=== PATIENT | female | born 1935 | race African-American/Black ===

== ENCOUNTER 2021-12-23 17:48 | Inpatient (IN) | payer MEDICARE, MEDICAID ==
[~2021-12-23] VITALS: Ht 152.4 cm; Wt 50.6 kg
[2021-12-23] MEDS ORDERED: IPRATROPIUM BROMIDE (0.02%) 0.5MG/2.5ML NEB HHN STA (18:42)
[2021-12-23 18:59] LABS: HEMATOCRIT. 36.5 % (36.0-48.0); HEMOGLOBIN. 11.9 g/dL (12.0-16.0); MEAN CORPUSCULAR HEMOGLOBIN 36.5 pg (28.0-32.0); MEAN CORPUSCULAR VOLUME 112.1 fL (81.0-99.0); MEAN PLATELET VOLUME 9.7 fl (7.4-10.4); PLATELET 208 x1000/uL (130-400); RED BLOOD CELL COUNT 3.26 mill/uL (4.2-5.4); RED CELL DISTRIBUTION WIDTH 17.6 % (11.6-14.6)
[2021-12-23] MEDS: ALBUTEROL (0.083%) 2.5MG/3ML NEB HHN SCH ×2 (19:02→20:37)
[2021-12-23 19:10] LABS: CHLORIDE 107 mEq/L (98-107)
[2021-12-23 19:49] LABS: PLATELET ESTIMATE NORMAL
[2021-12-23] MEDS ORDERED: FUROSEMIDE 40MG/4ML VIAL IV ONE (20:00)
[2021-12-23] MEDS ORDERED: CEFTRIAXONE 1 G PREMIX 50 ML IV ONE (21:15)
[2021-12-23] MEDS ORDERED: AZITHROMYCIN 500MG/250ML 250 ML IV ONE (21:15)
[2021-12-23] MEDS ORDERED: ASPIRIN 325MG TABLET PO ONE (22:45)
[2021-12-24] VITALS (8 sets, daily range): BP systolic 96–125; BP diastolic 59–72
[2021-12-24] MEDS: DEXT 5%/0.45% NACL 1000ML 1,000 ML IV SCH (00:15)
[2021-12-24] MEDS ORDERED: CLONIDINE 0.1MG TABLET PO PRN (00:15)
[2021-12-24] MEDS ORDERED: IPRATROPIUM/ALBUTEROL 0.5-3(2.5)MG/3ML NEB NEB PRN (00:15)
[2021-12-24] MEDS ORDERED: DEXTROSE 50% WATER 50ML SYRINGE IV PRN (00:15)
[2021-12-24] MEDS ORDERED: HYDRALAZINE 20MG/ML VIAL IV PRN (00:15)
[2021-12-24] MEDS: IPRATROPIUM/ALBUTEROL 0.5-3(2.5)MG/3ML NEB HHN SCH ×4 (03:38→20:23)
[2021-12-24] MEDS: LEVOFLOXACIN 500MG PREMIX 100 ML IV SCH (03:38)
[2021-12-24] MEDS: SODIUM CHLORIDE 0.9% INJ 3ML FLUSH IVF SCH ×3 (06:11→21:47)
[2021-12-24] MEDS: BLOOD SUGAR DIAGNOSTIC STRIP TEST SCH ×4 (08:00→21:47)
[2021-12-24] MEDS: INSULIN LISPRO 100 UNITS/ML SUBCUT SCH ×4 (08:00→21:46)
[2021-12-24] MEDS: PANTOPRAZOLE SODIUM 40 MG/VIAL IV SCH (11:50)
[2021-12-24] MEDS ORDERED: FERR324T22 PO (12:40)
[2021-12-24] MEDS ORDERED: FURO-152 PO (12:40)
[2021-12-24] MEDS ORDERED: ALLO100T PO (12:40)
[2021-12-24] MEDS ORDERED: PRED10TA PO (12:40)
[2021-12-24] MEDS ORDERED: ATEN-42 PO (12:40)
[2021-12-24] MEDS ORDERED: WARF2.5T83 PO (12:40)
[2021-12-24] MEDS ORDERED: PRIM250T7 PO (12:40)
[2021-12-24] MEDS ORDERED: NITR1OIN TD (12:40)
[2021-12-24] MEDS ORDERED: SITA100T11 PO (12:40)
[2021-12-24] MEDS: ACETAMINOPHEN 650MG/20.3ML UDC PO PRN (15:14)
[2021-12-24] MEDS: PRIMIDONE 250 MG TABLET PO SCH (21:46)
[2021-12-25] VITALS (12 sets, daily range): BP systolic 103–130; BP diastolic 56–89
[2021-12-25] MEDS ORDERED: LACTULOSE 20G/30ML UDC PO PRN (00:30)
[2021-12-25] MEDS ORDERED: METHOTREXATE SODIUM 2 . 5MG TABLET PO SCH (00:30)
[2021-12-25] MEDS: IPRATROPIUM/ALBUTEROL 0.5-3(2.5)MG/3ML NEB HHN SCH ×3 (00:51→21:56)
[2021-12-25] MEDS: LEVOFLOXACIN 500MG PREMIX 100 ML IV SCH (02:43)
[2021-12-25] MEDS: DEXT 5%/0.45% NACL 1000ML 1,000 ML IV SCH ×2 (02:44→16:16)
[2021-12-25] MEDS: SODIUM CHLORIDE 0.9% INJ 3ML FLUSH IVF SCH ×3 (05:35→22:31)
[2021-12-25] MEDS: OXYBUTYNIN CHLORIDE 5MG TABLET PO SCH ×3 (05:35→22:31)
[2021-12-25 06:41] LABS: INR 2.9; PROTHROMBIN TIME 28.9 sec (9.6-11.0)
[2021-12-25 06:50] LABS: T4 FREE 1.38 ng/dL (0.76-1.46)
[2021-12-25] MEDS: ACETAMINOPHEN 650MG/20.3ML UDC PO PRN ×2 (07:17→13:17)
[2021-12-25] MEDS: IBUPROFEN 600MG TABLET PO PRN ×2 (07:57→20:27)
[2021-12-25] MEDS: BLOOD SUGAR DIAGNOSTIC STRIP TEST SCH ×4 (08:08→20:28)
[2021-12-25] MEDS: PANTOPRAZOLE SODIUM 40 MG/VIAL IV SCH (08:45)
[2021-12-25] MEDS: FERROUS SULFATE 325MG TABLET PO SCH (08:46)
[2021-12-25] MEDS: ATENOLOL 25MG TABLET PO SCH ×2 (08:47→16:15)
[2021-12-25] MEDS: ALLOPURINOL 100 MG TABLET PO SCH (08:47)
[2021-12-25] MEDS: FOLIC ACID 1MG TABLET PO SCH (08:47)
[2021-12-25] MEDS: INSULIN LISPRO 100 UNITS/ML SUBCUT SCH ×4 (08:49→20:28)
[2021-12-25] MEDS: PRIMIDONE 250 MG TABLET PO SCH ×3 (09:00→20:26)
[2021-12-25] MEDS ORDERED: PREDNISONE 10MG TABLET PO SCH (09:00)
[2021-12-25] MEDS: VENLAFAXINE HCL 50MG TABLET PO SCH (09:49)
[2021-12-25] MEDS: PIOGLITAZONE 15MG TABLET PO SCH (09:50)
[2021-12-25] MEDS: WARFARIN SODIUM 5MG TABLET PO SCH (17:48)
[2021-12-25] MEDS ORDERED: HYDROCODONE/ACETAMINOPHEN 5/325MG TABLET PO PRN (21:30)
[2021-12-25] MEDS: TRAMADOL 50MG TABLET PO PRN (23:12)
[2021-12-26] VITALS (12 sets, daily range): BP systolic 103–122; BP diastolic 41–72
[2021-12-26] MEDS: SILDENAFIL CITRATE 20MG TABLET PO SCH ×4 (00:11→22:17)
[2021-12-26] MEDS: IPRATROPIUM/ALBUTEROL 0.5-3(2.5)MG/3ML NEB HHN SCH ×4 (01:03→20:43)
[2021-12-26] MEDS: LEVOFLOXACIN 500MG PREMIX 100 ML IV SCH (01:27)
[2021-12-26] MEDS: SODIUM CHLORIDE 0.9% INJ 3ML FLUSH IVF SCH ×3 (05:18→21:58)
[2021-12-26] MEDS: OXYBUTYNIN CHLORIDE 5MG TABLET PO SCH ×3 (05:18→21:58)
[2021-12-26] MEDS: TRAMADOL 50MG TABLET PO PRN ×3 (05:20→07:33)
[2021-12-26 06:55] LABS: BASOPHILS % 0.3 % (0.0-2.0); EOSINOPHILS % 0.4 % (0.0-5.0); HEMATOCRIT. 32.9 % (36.0-48.0); LYMPHOCYTES % 7.1 % (20.0-50.0); MEAN CORPUSCULAR HEMOGLOBIN 37.3 pg (28.0-32.0); MEAN CORPUSCULAR VOLUME 111.7 fL (81.0-99.0); MEAN PLATELET VOLUME 9.7 fl (7.4-10.4); MONOCYTES % 10.9 % (2.0-8.0); NEUTROPHILS % 81.3 % (40.0-76.0); PLATELET 175 x1000/uL (130-400); RED BLOOD CELL COUNT 2.95 mill/uL (4.2-5.4); RED CELL DISTRIBUTION WIDTH 17.1 % (11.6-14.6)
[2021-12-26 07:08] LABS: INR 2.3; PROTHROMBIN TIME 23.6 sec (9.6-11.0)
[2021-12-26 07:27] LABS: FOLIC ACID (FOLATE) SERUM >20 ng/mL ng/mL (>5.38)
[2021-12-26] MEDS: BLOOD SUGAR DIAGNOSTIC STRIP TEST SCH ×4 (07:30→21:58)
[2021-12-26 07:38] LABS: VITAMIN B12 SERUM 1546 pg/mL (211-911)
[2021-12-26] MEDS: INSULIN LISPRO 100 UNITS/ML SUBCUT SCH ×4 (08:00→21:00)
[2021-12-26] MEDS: PANTOPRAZOLE SODIUM 40 MG/VIAL IV SCH (09:24)
[2021-12-26] MEDS: VENLAFAXINE HCL 50MG TABLET PO SCH (09:24)
[2021-12-26] MEDS: ATENOLOL 25MG TABLET PO SCH ×2 (09:25→17:47)
[2021-12-26] MEDS: ALLOPURINOL 100 MG TABLET PO SCH (09:25)
[2021-12-26] MEDS: PREDNISONE 10MG TABLET PO SCH (09:26)
[2021-12-26] MEDS: FOLIC ACID 1MG TABLET PO SCH (09:26)
[2021-12-26] MEDS: FERROUS SULFATE 325MG TABLET PO SCH (09:26)
[2021-12-26] MEDS: PIOGLITAZONE 15MG TABLET PO SCH (09:27)
[2021-12-26] MEDS: PRIMIDONE 250 MG TABLET PO SCH ×2 (11:17→21:57)
[2021-12-26] MEDS ORDERED: NALOXONE HCL 0.4MG/ML VIAL IV PRN (12:45)
[2021-12-26] MEDS: WARFARIN SODIUM 5MG TABLET PO SCH (18:30)
[2021-12-27] VITALS (13 sets, daily range): BP systolic 90–110; BP diastolic 48–93
[2021-12-27] MEDS: IPRATROPIUM/ALBUTEROL 0.5-3(2.5)MG/3ML NEB HHN SCH ×4 (00:36→20:50)
[2021-12-27] MEDS: LEVOFLOXACIN 500MG PREMIX 100 ML IV SCH (02:56)
[2021-12-27] MEDS: OXYBUTYNIN CHLORIDE 5MG TABLET PO SCH ×3 (05:20→21:38)
[2021-12-27] MEDS: SODIUM CHLORIDE 0.9% INJ 3ML FLUSH IVF SCH ×3 (05:21→21:36)
[2021-12-27] MEDS: SILDENAFIL CITRATE 20MG TABLET PO SCH ×3 (05:35→22:57)
[2021-12-27] MEDS: BLOOD SUGAR DIAGNOSTIC STRIP TEST SCH ×4 (07:30→21:00)
[2021-12-27] MEDS: INSULIN LISPRO 100 UNITS/ML SUBCUT SCH ×4 (08:00→21:38)
[2021-12-27] MEDS: ATENOLOL 25MG TABLET PO SCH (09:00)
[2021-12-27] MEDS: FOLIC ACID 1MG TABLET PO SCH (11:11)
[2021-12-27] MEDS: PANTOPRAZOLE SODIUM 40 MG/VIAL IV SCH (11:11)
[2021-12-27] MEDS: ALLOPURINOL 100 MG TABLET PO SCH (11:12)
[2021-12-27] MEDS: PIOGLITAZONE 15MG TABLET PO SCH (11:12)
[2021-12-27] MEDS: PREDNISONE 10MG TABLET PO SCH (11:12)
[2021-12-27] MEDS: FERROUS SULFATE 325MG TABLET PO SCH (11:13)
[2021-12-27] MEDS: PRIMIDONE 250 MG TABLET PO SCH ×2 (11:15→21:36)
[2021-12-27 15:29] LABS: INR 3.3; PROTHROMBIN TIME 32.5 sec (9.6-11.0)
[2021-12-27] MEDS ORDERED: DIGOXIN 125MCG TABLET PO SCH (18:00)
[2021-12-27] MEDS ORDERED: WARFARIN SODIUM 2.5MG TABLET PO SCH (20:00)
[2021-12-27] MEDS ORDERED: BUDESONIDE 0.5MG/2ML NEB ONE (20:25)
[2021-12-28] VITALS: BP 115/87
[2021-12-28] MEDS: IPRATROPIUM/ALBUTEROL 0.5-3(2.5)MG/3ML NEB HHN SCH (00:39)
[2021-12-28 02:00] VITALS: BP 104/57
[2021-12-28] MEDS: LEVOFLOXACIN 500MG PREMIX 100 ML IV SCH (02:30)
[2021-12-28 04:00] VITALS: BP 101/67
[2021-12-28] MEDS: SILDENAFIL CITRATE 20MG TABLET PO SCH (05:47)
[2021-12-28] MEDS: OXYBUTYNIN CHLORIDE 5MG TABLET PO SCH (05:47)
[2021-12-28 06:00] VITALS: BP 111/59
[2021-12-28 06:27] LABS: INR 3.2; PROTHROMBIN TIME 30.9 sec (9.6-11.0)
[2021-12-28 07:08] LABS: ANTI-CENTROMERE B ANTIBODIES < 0.2 AI (0.0-0.9); ANTI-JO 1 ABS <0.2 AI (0.0-0.9)
[2021-12-28 07:23] VITALS: BP 103/93
[2021-12-28] MEDS ORDERED: ATENOLOL 25MG TABLET PO SCH (09:00)
[2021-12-28] MEDS ORDERED: PREDNISONE 10MG TABLET PO SCH (09:00)
[2021-12-28 09:10] LABS: ALDOLASE 12.9 U/L (3.3-10.3)
[2021-12-28 19:06] LABS: ANTI-CARDIOLIPIN AB IGG < 9 GPL U/mL (0-14); ANTI-CARDIOLIPIN AB IGM < 9 MPL U/mL (0-12)
[2021-12-29] MEDS ORDERED: METHOTREXATE SODIUM 2 . 5MG TABLET PO SCH ×3 (09:00→21:00)
== END 2021-12-28 06:50 | disposition home health service (06) | DRG 193 ==
LOC: ER 17:48 → MICUSO 22:39 → 5EST 12-24 10:30
PROVIDERS: ADMIT Internal Medicine; ATTEND Internal Medicine
PROC: 5A09357 Assistance with Respiratory Ventilation, Less than 24 Consecutive Hours, Continuous Positive Airway Pressure (ICD-10-PCS; principal; 2021-12-23)
DX: J18.9 Pneumonia, unspecified organism (principal); J96.01 Acute respiratory failure with hypoxia; M33.20 Polymyositis, organ involvement unspecified; D68.61 Antiphospholipid syndrome; E44.1 Mild protein-calorie malnutrition; I50.42 Chronic combined systolic (congestive) and diastolic (congestive) heart failure; R65.10 Systemic inflammatory response syndrome (SIRS) of non-infectious origin without acute organ dysfunction; K59.00 Constipation, unspecified; D53.9 Nutritional anemia, unspecified; E11.9 Type 2 diabetes mellitus without complications; E78.5 Hyperlipidemia, unspecified; F32.A Depression, unspecified; I11.0 Hypertensive heart disease with heart failure; M06.9 Rheumatoid arthritis, unspecified; M31.6 Other giant cell arteritis; M51.36 Other intervertebral disc degeneration, lumbar region; M85.80 Other specified disorders of bone density and structure, unspecified site; N20.0 Calculus of kidney; Z66 Do not resuscitate; I35.0 Nonrheumatic aortic (valve) stenosis; I27.20 Pulmonary hypertension, unspecified; Z20.822 Contact with and (suspected) exposure to COVID-19; R74.01 Elevation of levels of liver transaminase levels; D75.89 Other specified diseases of blood and blood-forming organs; I27.21 Secondary pulmonary arterial hypertension; Z82.49 Family history of ischemic heart disease and other diseases of the circulatory system; Z82.5 Family history of asthma and other chronic lower respiratory diseases; Z83.3 Family history of diabetes mellitus; Z86.711 Personal history of pulmonary embolism; Z86.718 Personal history of other venous thrombosis and embolism; Z87.891 Personal history of nicotine dependence; Z90.711 Acquired absence of uterus with remaining cervical stump; Z93.1 Gastrostomy status; Z95.828 Presence of other vascular implants and grafts; Z79.899 Other long term (current) drug therapy; Z68.21 Body mass index [BMI] 21.0-21.9, adult; Z79.01 Long term (current) use of anticoagulants
CPT/HCPCS: 36415; 71045; 71260; 73718; 80053; 82085; 82550; 82607; 82746; 82962; 83036; 83605; 83880; 84439; 84484; 85025; 85651; 86147; 86235; 87426; 93005; 93306; 94640; 94660; 97162; 99291; C9113; J0456; J0696; J1815; J1940; J1956; J7512; J7626

== ENCOUNTER 2022-01-09 11:13 | Inpatient (IN) | payer MEDICARE, MEDICAID ==
[~2022-01-09] VITALS: Ht 152.4 cm; Wt 52.6 kg
[~2022-01-09 11:13] MED LIST: ALLO100T PO; ATEN-42 PO; FERR324T22 PO; FURO-152 PO; NITR1OIN TD; PRED10TA PO; PRIM250T7 PO; SITA100T11 PO; WARF2.5T83 PO
[2022-01-09 12:54] LABS: HEMATOCRIT. 32.9 % (36.0-48.0); HEMOGLOBIN. 10.9 g/dL (12.0-16.0); MEAN CORPUSCULAR HEMOGLOBIN 37.4 pg (28.0-32.0); MEAN CORPUSCULAR VOLUME 113.3 fL (81.0-99.0); MEAN PLATELET VOLUME 9.5 fl (7.4-10.4); PLATELET 234 x1000/uL (130-400); RED CELL DISTRIBUTION WIDTH 18.7 % (11.6-14.6)
[2022-01-09 13:02] LABS: CHLORIDE 108 mEq/L (98-107)
[2022-01-09 13:05] LABS: INR 2.2; PROTHROMBIN TIME 22.6 sec (9.6-11.0)
[2022-01-09 13:13] LABS: NUCLEATED RED BLOOD CELLS 1 /100 WBC
[2022-01-09 13:15] LABS: PLATELET ESTIMATE NORMAL
[2022-01-09 16:24] LABS: CLARITY URINE CLEAR (CLEAR); COLOR URINE YELLOW (YELLOW); KETONES URINE TRACE (NEGATIVE); LEUKOCYTE ESTERASE URINE 2+ (NEGATIVE); NITRITE URINE NEGATIVE (NEGATIVE); OCCULT BLOOD URINE TRACE (NEGATIVE); PH URINE 6.5 (4.5-8.0); PROTEIN URINE 1+ (NEGATIVE); SPECIFIC GRAVITY URINE 1.018 (1.005-1.030)
[2022-01-09] MEDS ORDERED: MAGNESIUM HYDROXIDE 400MG/5ML 30ML UDC PO PRN (18:15)
[2022-01-09] MEDS ORDERED: ZOLPIDEM TARTRATE 5MG TABLET PO PRN (18:15)
[2022-01-09] MEDS ORDERED: GUAIFENESIN 200MG/10ML SUGAR FREE UDC PO PRN (18:15)
[2022-01-09] MEDS ORDERED: WARFARIN SODIUM 2.5MG TABLET PO ONE (18:15)
[2022-01-09] MEDS ORDERED: DIPHENHYDRAMINE 50MG/ML VIAL IV PRN (18:15)
[2022-01-09] MEDS ORDERED: ACETAMINOPHEN 325MG TABLET PO PRN (18:15)
[2022-01-09] MEDS ORDERED: ONDANSETRON HCL 4MG/2ML INJ IV PRN (18:15)
[2022-01-09] MEDS ORDERED: HYDROCODONE/APAP 7.5/325MG 1 TAB TABLET PO PRN (18:15)
[2022-01-09] MEDS ORDERED: DEXTROSE 50% WATER 50ML SYRINGE IV PRN (18:15)
[2022-01-09] MEDS ORDERED: CLONIDINE 0.1MG TABLET PO PRN (18:15)
[2022-01-09 18:39] VITALS: BP 152/86
[2022-01-09] MEDS ORDERED: CYANOCOBALAMIN 1000MCG/ML VIAL IM NR (18:45)
[2022-01-09 19:30] VITALS: BP 138/92
[2022-01-09 20:00] VITALS: BP 138/92
[2022-01-09] MEDS: INSULIN LISPRO 100 UNITS/ML SUBCUT SCH (21:00)
[2022-01-09] MEDS: BLOOD SUGAR DIAGNOSTIC STRIP TEST SCH (21:32)
[2022-01-09] MEDS: PRIMIDONE 250 MG TABLET PO SCH (21:36)
[2022-01-09] MEDS: SODIUM CHLORIDE 0.9% INJ 3ML FLUSH IVF SCH (21:36)
[2022-01-10] VITALS: BP 153/58
[2022-01-10] MEDS: ACETAMINOPHEN 325MG TABLET PO PRN (00:15)
[2022-01-10] MEDS ORDERED: P20 PO (03:50)
[2022-01-10 04:00] VITALS: BP 143/67
[2022-01-10] MEDS: SODIUM CHLORIDE 0.9% INJ 3ML FLUSH IVF SCH ×3 (05:20→21:17)
[2022-01-10] MEDS: BLOOD SUGAR DIAGNOSTIC STRIP TEST SCH ×4 (06:52→21:13)
[2022-01-10] MEDS: INSULIN LISPRO 100 UNITS/ML SUBCUT SCH ×4 (06:52→21:17)
[2022-01-10 07:46] LABS: INR 2.2; PROTHROMBIN TIME 21.8 sec (9.6-11.0)
[2022-01-10 08:00] VITALS: BP 128/53
[2022-01-10] MEDS: ALLOPURINOL 100 MG TABLET PO SCH (08:55)
[2022-01-10] MEDS: ATENOLOL 25MG TABLET PO SCH (08:55)
[2022-01-10] MEDS: FOLIC ACID 1MG TABLET PO SCH (08:55)
[2022-01-10] MEDS: LINAGLIPTIN 5MG TABLET PO SCH (08:56)
[2022-01-10] MEDS ORDERED: PREDNISONE 10MG TABLET PO SCH (09:00)
[2022-01-10 12:00] VITALS: BP 135/61
[2022-01-10] MEDS ORDERED: PREDNISONE 20MG TABLET PO ONE ×2 (13:00→13:45)
[2022-01-10 13:20] LABS: FERRITIN 287 ng/mL (10-291)
[2022-01-10] MEDS ORDERED: PREDNISONE 20MG TABLET PO NR (13:45)
[2022-01-10 16:00] VITALS: BP 122/2
[2022-01-10 16:43] LABS: FOLIC ACID (FOLATE) SERUM > 20.00 ng/mL (>5.38); VITAMIN B12 SERUM > 2000.0 pg/mL (211-911)
[2022-01-10] MEDS ORDERED: DIGOXIN 250MCG TABLET PO SCH (18:00)
[2022-01-10] MEDS ORDERED: WARFARIN SODIUM 2.5MG TABLET PO NR (18:00)
[2022-01-10 20:00] VITALS: BP 133/68
[2022-01-10] MEDS: FAMOTIDINE 20MG TABLET PO SCH (21:16)
[2022-01-10] MEDS: PRIMIDONE 250 MG TABLET PO SCH (21:16)
[2022-01-11] VITALS: BP 139/85
[2022-01-11 04:00] VITALS: BP 142/85
[2022-01-11] MEDS: SODIUM CHLORIDE 0.9% INJ 3ML FLUSH IVF SCH ×3 (06:00→21:36)
[2022-01-11] MEDS: BLOOD SUGAR DIAGNOSTIC STRIP TEST SCH ×4 (07:06→21:21)
[2022-01-11] MEDS: INSULIN LISPRO 100 UNITS/ML SUBCUT SCH ×4 (07:39→21:00)
[2022-01-11 08:00] VITALS: BP 138/71
[2022-01-11 08:56] LABS: BASOPHILS % 0.5 % (0.0-2.0); EOSINOPHILS % 0.2 % (0.0-5.0); HEMATOCRIT. 35.1 % (36.0-48.0); HEMOGLOBIN. 11.2 g/dL (12.0-16.0); LYMPHOCYTES % 19.1 % (20.0-50.0); MEAN CORPUSCULAR HEMOGLOBIN 37.8 pg (28.0-32.0); MEAN CORPUSCULAR VOLUME 118.6 fL (81.0-99.0); MEAN PLATELET VOLUME 9.8 fl (7.4-10.4); MONOCYTES % 11.3 % (2.0-8.0); NEUTROPHILS % 68.9 % (40.0-76.0); PLATELET 210 x1000/uL (130-400); RED BLOOD CELL COUNT 2.96 mill/uL (4.2-5.4); RED CELL DISTRIBUTION WIDTH 18.9 % (11.6-14.6)
[2022-01-11 09:05] LABS: INR 2.3; PROTHROMBIN TIME 23.4 sec (9.6-11.0)
[2022-01-11 09:09] LABS: CHLORIDE 111 mEq/L (98-107)
[2022-01-11] MEDS: FUROSEMIDE 20MG/2ML VIAL IVP SCH (09:09)
[2022-01-11] MEDS: ATENOLOL 25MG TABLET PO SCH (09:10)
[2022-01-11] MEDS: LINAGLIPTIN 5MG TABLET PO SCH (09:10)
[2022-01-11] MEDS: ALLOPURINOL 100 MG TABLET PO SCH (09:10)
[2022-01-11] MEDS: PREDNISONE 20MG TABLET PO SCH (09:10)
[2022-01-11] MEDS: FOLIC ACID 1MG TABLET PO SCH (09:10)
[2022-01-11 12:00] VITALS: BP 126/73
[2022-01-11 15:44] VITALS: BP 133/76
[2022-01-11] MEDS ORDERED: POLYETHYLENE GLYCOL 3350 (17GM) 1 DOSE PACK PO NR (17:30)
[2022-01-11] MEDS: DOCUSATE SODIUM 100MG CAPSULE PO SCH (17:45)
[2022-01-11] MEDS ORDERED: WARFARIN SODIUM 2.5MG TABLET PO NR (18:00)
[2022-01-11 20:00] VITALS: BP 147/61
[2022-01-11] MEDS: FAMOTIDINE 20MG TABLET PO SCH (21:35)
[2022-01-11] MEDS: PRIMIDONE 250 MG TABLET PO SCH (21:35)
[2022-01-12] VITALS: BP 158/66
[2022-01-12 04:00] VITALS: BP 145/62
[2022-01-12] MEDS: SODIUM CHLORIDE 0.9% INJ 3ML FLUSH IVF SCH ×3 (06:00→21:10)
[2022-01-12] MEDS: BLOOD SUGAR DIAGNOSTIC STRIP TEST SCH ×4 (06:40→21:10)
[2022-01-12] MEDS: INSULIN LISPRO 100 UNITS/ML SUBCUT SCH ×4 (07:31→21:00)
[2022-01-12 08:00] VITALS: BP 139/61
[2022-01-12] MEDS: LINAGLIPTIN 5MG TABLET PO SCH (09:41)
[2022-01-12] MEDS: DOCUSATE SODIUM 100MG CAPSULE PO SCH ×2 (09:41→18:01)
[2022-01-12] MEDS: PREDNISONE 20MG TABLET PO SCH (09:41)
[2022-01-12] MEDS: ATENOLOL 50 MG TABLET PO SCH (09:42)
[2022-01-12] MEDS: FOLIC ACID 1MG TABLET PO SCH (09:42)
[2022-01-12] MEDS: ALLOPURINOL 100 MG TABLET PO SCH (09:42)
[2022-01-12 11:34] LABS: BASOPHILS % 0.5 % (0.0-2.0); EOSINOPHILS % 0.8 % (0.0-5.0); HEMATOCRIT. 35.3 % (36.0-48.0); HEMOGLOBIN. 11.3 g/dL (12.0-16.0); LYMPHOCYTES % 25.9 % (20.0-50.0); MEAN CORPUSCULAR VOLUME 118.7 fL (81.0-99.0); MEAN PLATELET VOLUME 10.1 fl (7.4-10.4); MONOCYTES % 10.6 % (2.0-8.0); NEUTROPHILS % 62.2 % (40.0-76.0); PLATELET 188 x1000/uL (130-400); RED BLOOD CELL COUNT 2.97 mill/uL (4.2-5.4); RED CELL DISTRIBUTION WIDTH 19.8 % (11.6-14.6)
[2022-01-12 11:43] LABS: PROTHROMBIN TIME 20.5 sec (9.6-11.0)
[2022-01-12 12:00] VITALS: BP 131/71
[2022-01-12 12:01] LABS: CHLORIDE 109 mEq/L (98-107)
[2022-01-12 16:00] VITALS: BP 126/73
[2022-01-12] MEDS ORDERED: WARFARIN SODIUM 2.5MG TABLET PO NR (18:00)
[2022-01-12 20:00] VITALS: BP 124/59
[2022-01-12] MEDS: PRIMIDONE 250 MG TABLET PO SCH (21:10)
[2022-01-12] MEDS: FAMOTIDINE 20MG TABLET PO SCH (21:10)
[2022-01-13] VITALS: BP 125/67
[2022-01-13 03:46] VITALS: BP 140/63
[2022-01-13] MEDS: SODIUM CHLORIDE 0.9% INJ 3ML FLUSH IVF SCH ×3 (05:01→21:32)
[2022-01-13] MEDS: BLOOD SUGAR DIAGNOSTIC STRIP TEST SCH ×4 (07:04→21:13)
[2022-01-13 07:11] LABS: BASOPHILS % 0.5 % (0.0-2.0); EOSINOPHILS % 0.5 % (0.0-5.0); HEMATOCRIT. 35.7 % (36.0-48.0); HEMOGLOBIN. 10.9 g/dL (12.0-16.0); LYMPHOCYTES % 22.6 % (20.0-50.0); MEAN CORPUSCULAR HEMOGLOBIN 37.3 pg (28.0-32.0); MEAN CORPUSCULAR VOLUME 122.6 fL (81.0-99.0); MEAN PLATELET VOLUME 9.2 fl (7.4-10.4); MONOCYTES % 12.3 % (2.0-8.0); NEUTROPHILS % 64.1 % (40.0-76.0); PLATELET 166 x1000/uL (130-400); RED BLOOD CELL COUNT 2.91 mill/uL (4.2-5.4); RED CELL DISTRIBUTION WIDTH 19.5 % (11.6-14.6)
[2022-01-13 07:16] LABS: CHLORIDE 110 mEq/L (98-107)
[2022-01-13 07:21] LABS: INR 1.8; PROTHROMBIN TIME 18.2 sec (9.6-11.0)
[2022-01-13] MEDS: INSULIN LISPRO 100 UNITS/ML SUBCUT SCH ×4 (07:50→21:00)
[2022-01-13 08:08] VITALS: BP 160/78
[2022-01-13] MEDS: ATENOLOL 50 MG TABLET PO SCH (09:01)
[2022-01-13] MEDS: ALLOPURINOL 100 MG TABLET PO SCH (09:01)
[2022-01-13] MEDS: FOLIC ACID 1MG TABLET PO SCH (09:01)
[2022-01-13] MEDS: LINAGLIPTIN 5MG TABLET PO SCH (09:01)
[2022-01-13] MEDS: DOCUSATE SODIUM 100MG CAPSULE PO SCH ×2 (09:01→17:53)
[2022-01-13] MEDS: PREDNISONE 20MG TABLET PO SCH (09:01)
[2022-01-13] MEDS: FUROSEMIDE 20MG/2ML VIAL IVP SCH (09:02)
[2022-01-13] MEDS ORDERED: LACTULOSE 20G/30ML UDC PO NR (10:15)
[2022-01-13] MEDS ORDERED: SODIUM POLYSTYRENE SULFONATE 15 G/60 ML BOT PO NR (10:15)
[2022-01-13 12:30] VITALS: BP 154/78
[2022-01-13 16:30] VITALS: BP 144/72
[2022-01-13] MEDS ORDERED: WARFARIN SODIUM 3MG TABLET PO NR (18:00)
[2022-01-13] MEDS ORDERED: NALOXONE HCL 0.4MG/ML VIAL IV PRN (19:00)
[2022-01-13] MEDS: FAMOTIDINE 20MG TABLET PO SCH (21:00)
[2022-01-13] MEDS: PRIMIDONE 250 MG TABLET PO SCH (21:00)
[2022-01-14] VITALS (10 sets, daily range): BP systolic 108–203; BP diastolic 61–89
[2022-01-14] MEDS: SODIUM CHLORIDE 0.9% INJ 3ML FLUSH IVF SCH (06:16)
[2022-01-14 06:26] LABS: BASOPHILS % 0.4 % (0.0-2.0); EOSINOPHILS % 0.4 % (0.0-5.0); HEMATOCRIT. 36.4 % (36.0-48.0); HEMOGLOBIN. 11.4 g/dL (12.0-16.0); LYMPHOCYTES % 21.6 % (20.0-50.0); MEAN CORPUSCULAR HEMOGLOBIN 37.3 pg (28.0-32.0); MEAN CORPUSCULAR VOLUME 118.6 fL (81.0-99.0); MEAN PLATELET VOLUME 10.9 fl (7.4-10.4); MONOCYTES % 10.4 % (2.0-8.0); NEUTROPHILS % 67.2 % (40.0-76.0); PLATELET 171 x1000/uL (130-400); RED BLOOD CELL COUNT 3.07 mill/uL (4.2-5.4); RED CELL DISTRIBUTION WIDTH 19.8 % (11.6-14.6)
[2022-01-14] MEDS: BLOOD SUGAR DIAGNOSTIC STRIP TEST SCH ×4 (06:26→21:00)
[2022-01-14 06:39] LABS: INR 1.7; PROTHROMBIN TIME 17.6 sec (9.6-11.0)
[2022-01-14 06:46] LABS: CHLORIDE 112 mEq/L (98-107)
[2022-01-14] MEDS: INSULIN LISPRO 100 UNITS/ML SUBCUT SCH ×4 (07:50→21:46)
[2022-01-14] MEDS ORDERED: ALLO100T PO (09:31)
[2022-01-14] MEDS ORDERED: FAMO20TA8 PO (09:31)
[2022-01-14] MEDS ORDERED: ATEN50TA PO (09:31)
[2022-01-14] MEDS ORDERED: P20 PO ×2 (09:31)
[2022-01-14] MEDS ORDERED: LINA5TAB PO (09:31)
[2022-01-14] MEDS ORDERED: PRIM250T7 PO (09:31)
[2022-01-14] MEDS ORDERED: WARF2.5T83 PO (09:31)
[2022-01-14] MEDS ORDERED: FURO-152 MT (09:36)
[2022-01-14] MEDS: PREDNISONE 20MG TABLET PO SCH (11:03)
[2022-01-14] MEDS: ATENOLOL 50 MG TABLET PO SCH (11:03)
[2022-01-14] MEDS: FUROSEMIDE 40MG/4ML VIAL IVP NR ×2 (11:06→11:39)
[2022-01-14] MEDS: DOCUSATE SODIUM 100MG CAPSULE PO SCH ×2 (11:10→17:55)
[2022-01-14] MEDS: LINAGLIPTIN 5MG TABLET PO SCH (11:11)
[2022-01-14] MEDS: FOLIC ACID 1MG TABLET PO SCH (11:11)
[2022-01-14] MEDS: ALLOPURINOL 100 MG TABLET PO SCH (11:11)
[2022-01-14 11:21] LABS: BG BASE EXCESS 3.8 mmol/L (-2.0-2.0); BG CARBOXYHEMOGLOBIN 0.5 % (0.5-1.5); BG DEOXYHEMOGLOBIN 2.2 % (0.0-5.0); BG FRACTION INSPIRED OXYGEN 44; BG HCO3 ACT 27.9 mmol/L (22.0-26.0); BG METHEMOGLOBIN 0.4 % (0.0-1.5); BG OXYGEN SATURATION 97.8 % (92.0-98.5); BG OXYHEMOGLOBIN 96.9 % (94.0-97.0); BG PCO2 39.9 mmHg (35.0-45.0); BG PH 7.462 (7.350-7.450); BG PO2 106.1 mmHg (75.0-100.0); BG SAMPLE SITE RIGHT RADIAL; BG TOTAL HEMOGLOBIN 11.1 g/dL (12.0-18.0); BG VENT MODE NASAL CANNULA
[2022-01-14] MEDS: IPRATROPIUM/ALBUTEROL 0.5-3(2.5)MG/3ML NEB HHN SCH ×3 (11:35→20:26)
[2022-01-14] MEDS: MAGNESIUM/ALUMINUM HYDROXIDE/SIMETHICONE 30ML UDC PO PRN ×2 (12:01→22:36)
[2022-01-14] MEDS ORDERED: CEFTRIAXONE 1 G PREMIX 50 ML IV SCH (12:30)
[2022-01-14] MEDS: METHYLPREDNISOLONE SOD SUCC 40 MG/ML VIAL IV SCH (13:36)
[2022-01-14] MEDS: DEXTROSE 5% WATER 1,000 ML IV SCH (13:37)
[2022-01-14] MEDS: CEFTRIAXONE 1,000 MG in DEXTROSE 5% WATER 50 ML IV SCH (15:16)
[2022-01-14 17:08] LABS: CHLORIDE 109 mEq/L (98-107)
[2022-01-14] MEDS ORDERED: WARFARIN SODIUM 3MG TABLET PO NR (18:00)
[2022-01-14] MEDS ORDERED: POTASSIUM CHLORIDE INJ 40 MEQ in DEXT 5% WATER 250 ML IV ONE (18:15)
[2022-01-14] MEDS: KCL 20MEQ/100ML X 2 FOR TOTAL KCL 40MEQ/200ML IV SCH ×2 (20:44→23:10)
[2022-01-14] MEDS: PRIMIDONE 250 MG TABLET PO SCH (21:39)
[2022-01-14] MEDS: FAMOTIDINE 20MG TABLET PO SCH (21:39)
[2022-01-14] MEDS: SILDENAFIL CITRATE 20MG TABLET PO SCH (21:40)
[2022-01-14] MEDS: ACETAMINOPHEN 325MG TABLET PO PRN (21:42)
[2022-01-14] MEDS: LIDOCAINE 5% PATCH TOP SCH (23:36)
[2022-01-15] VITALS (9 sets, daily range): BP systolic 120–156; BP diastolic 29–106
[2022-01-15] MEDS: IPRATROPIUM/ALBUTEROL 0.5-3(2.5)MG/3ML NEB HHN SCH ×6 (00:16→20:24)
[2022-01-15] MEDS: METHYLPREDNISOLONE SOD SUCC 40 MG/ML VIAL IV SCH ×2 (00:35→12:39)
[2022-01-15] MEDS: SILDENAFIL CITRATE 20MG TABLET PO SCH ×3 (05:30→21:15)
[2022-01-15] MEDS: DEXTROSE 5% WATER 1,000 ML IV SCH (05:30)
[2022-01-15 06:12] LABS: HEMATOCRIT. 32.3 % (36.0-48.0); HEMOGLOBIN. 10.4 g/dL (12.0-16.0); MEAN CORPUSCULAR HEMOGLOBIN 37.5 pg (28.0-32.0); MEAN CORPUSCULAR VOLUME 116.1 fL (81.0-99.0); MEAN PLATELET VOLUME 10.5 fl (7.4-10.4); PLATELET 168 x1000/uL (130-400); RED BLOOD CELL COUNT 2.79 mill/uL (4.2-5.4); RED CELL DISTRIBUTION WIDTH 19.4 % (11.6-14.6)
[2022-01-15 06:17] LABS: INR 1.7; PROTHROMBIN TIME 17.1 sec (9.6-11.0)
[2022-01-15 06:18] LABS: CHLORIDE 107 mEq/L (98-107)
[2022-01-15 08:22] LABS: PLATELET ESTIMATE NORMAL
[2022-01-15] MEDS: LINAGLIPTIN 5MG TABLET PO SCH (08:48)
[2022-01-15] MEDS: ALLOPURINOL 100 MG TABLET PO SCH (08:48)
[2022-01-15] MEDS: FOLIC ACID 1MG TABLET PO SCH (08:48)
[2022-01-15] MEDS: ATENOLOL 50 MG TABLET PO SCH (08:49)
[2022-01-15] MEDS: DOCUSATE SODIUM 100MG CAPSULE PO SCH ×2 (08:49→17:09)
[2022-01-15] MEDS: LIDOCAINE 5% PATCH TOP SCH (09:00)
[2022-01-15] MEDS: BLOOD SUGAR DIAGNOSTIC STRIP TEST SCH ×4 (09:04→21:16)
[2022-01-15] MEDS: INSULIN LISPRO 100 UNITS/ML SUBCUT SCH ×4 (09:21→21:00)
[2022-01-15] MEDS: GABAPENTIN 100MG CAPSULE PO SCH ×2 (12:40→21:16)
[2022-01-15] MEDS: CEFTRIAXONE 1,000 MG in DEXTROSE 5% WATER 50 ML IV SCH (14:59)
[2022-01-15] MEDS ORDERED: WARFARIN SODIUM 3MG TABLET PO SCH (18:00)
[2022-01-15] MEDS: FAMOTIDINE 20MG TABLET PO SCH (21:15)
[2022-01-16] VITALS (7 sets, daily range): BP systolic 92–148; BP diastolic 59–75
[2022-01-16] MEDS: IPRATROPIUM/ALBUTEROL 0.5-3(2.5)MG/3ML NEB HHN SCH ×5 (00:15→20:42)
[2022-01-16 06:02] LABS: HEMATOCRIT. 28.5 % (36.0-48.0); HEMOGLOBIN. 9.4 g/dL (12.0-16.0); INR 1.6; MEAN CORPUSCULAR HEMOGLOBIN 37.5 pg (28.0-32.0); MEAN CORPUSCULAR VOLUME 114.1 fL (81.0-99.0); MEAN PLATELET VOLUME 10.5 fl (7.4-10.4); PLATELET 143 x1000/uL (130-400); PROTHROMBIN TIME 16.1 sec (9.6-11.0); RED CELL DISTRIBUTION WIDTH 18.9 % (11.6-14.6)
[2022-01-16] MEDS: SILDENAFIL CITRATE 20MG TABLET PO SCH ×3 (06:25→21:06)
[2022-01-16 06:31] LABS: CHLORIDE 99 mEq/L (98-107)
[2022-01-16] MEDS: BLOOD SUGAR DIAGNOSTIC STRIP TEST SCH ×4 (07:30→21:04)
[2022-01-16] MEDS: INSULIN LISPRO 100 UNITS/ML SUBCUT SCH ×4 (08:00→21:00)
[2022-01-16] MEDS ORDERED: METHYLPREDNISOLONE SOD SUCC 40 MG/ML VIAL IV SCH (09:00)
[2022-01-16] MEDS: FOLIC ACID 1MG TABLET PO SCH (09:17)
[2022-01-16] MEDS: DOCUSATE SODIUM 100MG CAPSULE PO SCH ×2 (09:17→17:44)
[2022-01-16] MEDS: ALLOPURINOL 100 MG TABLET PO SCH (09:17)
[2022-01-16] MEDS: GABAPENTIN 100MG CAPSULE PO SCH ×2 (09:17→21:06)
[2022-01-16] MEDS: ATENOLOL 50 MG TABLET PO SCH (09:18)
[2022-01-16] MEDS: LIDOCAINE 5% PATCH TOP SCH (09:20)
[2022-01-16] MEDS: LINAGLIPTIN 5MG TABLET PO SCH (09:29)
[2022-01-16 09:53] LABS: PLATELET ESTIMATE NORMAL
[2022-01-16] MEDS: CEFTRIAXONE 1,000 MG in DEXTROSE 5% WATER 50 ML IV SCH (13:23)
[2022-01-16] MEDS ORDERED: WARFARIN SODIUM 4MG TABLET PO NR (18:00)
[2022-01-16] MEDS: FAMOTIDINE 20MG TABLET PO SCH (21:06)
[2022-01-16] MEDS ORDERED: REV20 PO (22:47)
[2022-01-16] MEDS ORDERED: IPRA3AMP9 HHN (22:47)
[2022-01-17] VITALS: BP 119/68
[2022-01-17] MEDS: IPRATROPIUM/ALBUTEROL 0.5-3(2.5)MG/3ML NEB HHN SCH ×4 (00:25→12:13)
[2022-01-17 04:00] VITALS: BP 140/46
[2022-01-17] MEDS: SILDENAFIL CITRATE 20MG TABLET PO SCH (05:17)
[2022-01-17 06:35] LABS: INR 1.4
[2022-01-17 06:40] LABS: BASOPHILS % 0.3 % (0.0-2.0); EOSINOPHILS % 1.5 % (0.0-5.0); HEMATOCRIT. 28.6 % (36.0-48.0); HEMOGLOBIN. 9.6 g/dL (12.0-16.0); LYMPHOCYTES % 15.5 % (20.0-50.0); MEAN CORPUSCULAR VOLUME 113.1 fL (81.0-99.0); MEAN PLATELET VOLUME 10.6 fl (7.4-10.4); NEUTROPHILS % 68.7 % (40.0-76.0); PLATELET 157 x1000/uL (130-400); RED BLOOD CELL COUNT 2.53 mill/uL (4.2-5.4); RED CELL DISTRIBUTION WIDTH 18.7 % (11.6-14.6)
[2022-01-17] MEDS: BLOOD SUGAR DIAGNOSTIC STRIP TEST SCH ×2 (07:30→12:30)
[2022-01-17 07:33] LABS: CHLORIDE 99 mEq/L (98-107)
[2022-01-17 08:00] VITALS: BP 109/55
[2022-01-17] MEDS: INSULIN LISPRO 100 UNITS/ML SUBCUT SCH (08:00)
[2022-01-17] MEDS: LINAGLIPTIN 5MG TABLET PO SCH (08:57)
[2022-01-17] MEDS: DOCUSATE SODIUM 100MG CAPSULE PO SCH (08:57)
[2022-01-17] MEDS: ALLOPURINOL 100 MG TABLET PO SCH (08:57)
[2022-01-17] MEDS: FOLIC ACID 1MG TABLET PO SCH (08:57)
[2022-01-17] MEDS: GABAPENTIN 100MG CAPSULE PO SCH (08:57)
[2022-01-17] MEDS: LIDOCAINE 5% PATCH TOP SCH (08:58)
[2022-01-17] MEDS: ATENOLOL 50 MG TABLET PO SCH (08:58)
[2022-01-17] MEDS ORDERED: PREDNISONE 20MG TABLET PO SCH (09:00)
[2022-01-17 09:52] VITALS: BP 112/54
[2022-01-17 10:08] VITALS: BP 138/81
[2022-01-17] MEDS ORDERED: P20 MT (10:28)
[2022-01-17] MEDS ORDERED: WARFARIN SODIUM 4MG TABLET PO NR (18:00)
== END 2022-01-17 14:11 | disposition home or self-care (01) | DRG 291 ==
LOC: ER 11:55 → 6WST 14:57 → ENRESERV 15:27 → 5EST 01-14 13:15
PROVIDERS: ADMIT Internal Medicine; ATTEND Internal Medicine
PROC: 5A09357 Assistance with Respiratory Ventilation, Less than 24 Consecutive Hours, Continuous Positive Airway Pressure (ICD-10-PCS; principal; 2022-01-14)
DX: I11.0 Hypertensive heart disease with heart failure (principal); J96.01 Acute respiratory failure with hypoxia; I50.43 Acute on chronic combined systolic (congestive) and diastolic (congestive) heart failure; M33.20 Polymyositis, organ involvement unspecified; I67.82 Cerebral ischemia; E44.1 Mild protein-calorie malnutrition; E87.0 Hyperosmolality and hypernatremia; D68.9 Coagulation defect, unspecified; I42.9 Cardiomyopathy, unspecified; K64.4 Residual hemorrhoidal skin tags; I27.20 Pulmonary hypertension, unspecified; E11.9 Type 2 diabetes mellitus without complications; L89.90 Pressure ulcer of unspecified site, unspecified stage; R53.81 Other malaise; G40.909 Epilepsy, unspecified, not intractable, without status epilepticus; I25.119 Atherosclerotic heart disease of native coronary artery with unspecified angina pectoris; M06.9 Rheumatoid arthritis, unspecified; I35.0 Nonrheumatic aortic (valve) stenosis; L89.156 Pressure-induced deep tissue damage of sacral region; R33.9 Retention of urine, unspecified; E87.5 Hyperkalemia; D53.9 Nutritional anemia, unspecified; M31.6 Other giant cell arteritis; R74.01 Elevation of levels of liver transaminase levels; Z79.01 Long term (current) use of anticoagulants; Z86.718 Personal history of other venous thrombosis and embolism; Z86.711 Personal history of pulmonary embolism; Z83.3 Family history of diabetes mellitus; Z68.22 Body mass index [BMI] 22.0-22.9, adult; Z95.828 Presence of other vascular implants and grafts; Z87.891 Personal history of nicotine dependence; Z90.711 Acquired absence of uterus with remaining cervical stump
CPT/HCPCS: 36415; 36600; 71045; 74018; 80048; 80053; 80076; 80162; 81003; 82040; 82270; 82375; 82607; 82728; 82746; 82805; 82962; 82977; 83036; 83540; 83550; 83880; 84132; 84134; 84145; 84484; 85025; 85044; 93005; 93923; 94640; 94660; 99285; J0696; J1815; J1940; J2920; J3480; J7060; J7070; J7512

== ENCOUNTER 2022-02-21 01:59 | Inpatient (IN) | payer MEDICARE, MEDICAID ==
[~2022-02-21] VITALS: Ht 162.6 cm; Wt 57.6 kg
[~2022-02-21 01:59] MED LIST changes: -ATEN-42 PO; +ATEN50TA PO; +FAMO20TA8 PO; -FERR324T22 PO; +FURO-152 MT; -FURO-152 PO; +IPRA3AMP9 HHN; +LINA5TAB PO; -NITR1OIN TD; +P20 MT; -PRED10TA PO; +REV20 PO; -SITA100T11 PO
[2022-02-21] MEDS ORDERED: KETOROLAC 30MG/ML VIAL IV ONE (05:15)
[2022-02-21 05:17] LABS: BASOPHILS % 0.6 % (0.0-2.0); EOSINOPHILS % 0.1 % (0.0-5.0); HEMATOCRIT. 38.3 % (36.0-48.0); HEMOGLOBIN. 12.1 g/dL (12.0-16.0); LYMPHOCYTES % 12.6 % (20.0-50.0); MEAN CORPUSCULAR HEMOGLOBIN 35.5 pg (28.0-32.0); MEAN CORPUSCULAR VOLUME 112.8 fL (81.0-99.0); MEAN PLATELET VOLUME 11.3 fl (7.4-10.4); NEUTROPHILS % 78.7 % (40.0-76.0); PLATELET 118 x1000/uL (130-400); RED CELL DISTRIBUTION WIDTH 17.2 % (11.6-14.6)
[2022-02-21 05:31] LABS: PLATELET ESTIMATE SLIGHTLY DECREASED
[2022-02-21 05:40] LABS: CHLORIDE 100 mEq/L (98-107)
[2022-02-21 06:18] LABS: CLARITY URINE CLOUDY (CLEAR); COLOR URINE YELLOW (YELLOW); KETONES URINE TRACE (NEGATIVE); LEUKOCYTE ESTERASE URINE 3+ (NEGATIVE); NITRITE URINE NEGATIVE (NEGATIVE); OCCULT BLOOD URINE 2+ (NEGATIVE); PROTEIN URINE 2+ (NEGATIVE); SPECIFIC GRAVITY URINE 1.021 (1.005-1.030)
[2022-02-21] MEDS ORDERED: CEFTRIAXONE 1 G PREMIX 50 ML IV ONE (06:30)
[2022-02-21 11:59] VITALS: BP 165/91
[2022-02-21 12:00] VITALS: BP 122/78
[2022-02-21] MEDS ORDERED: AMLODIPINE 5MG TABLET PO NR (12:25)
[2022-02-21] MEDS ORDERED: DIGOXIN 250MCG TABLET PO NR (12:30)
[2022-02-21] MEDS ORDERED: CYANOCOBALAMIN 1000MCG/ML VIAL IM NR (12:30)
[2022-02-21] MEDS ORDERED: ALBUTEROL 6.7GM HFA INHALER ORI PRN (12:30)
[2022-02-21] MEDS ORDERED: METHOTREXATE SODIUM 2 . 5MG TABLET PO SCH (12:30)
[2022-02-21] MEDS ORDERED: LORAZEPAM 2MG/ML CPJ IV PRN (12:30)
[2022-02-21] MEDS: LOSARTAN POTASSIUM 50 MG TABLET PO SCH (13:48)
[2022-02-21] MEDS: FOLIC ACID 1MG TABLET PO SCH (13:49)
[2022-02-21] MEDS: METHYLPREDNISOLONE SOD SUCC 40 MG/ML VIAL IV SCH ×2 (13:49→21:28)
[2022-02-21] MEDS: MEGESTROL ACETATE 400 MG/10 ML UDC PO SCH (13:50)
[2022-02-21] MEDS: SILDENAFIL CITRATE 20MG TABLET PO SCH ×2 (14:16→21:28)
[2022-02-21] MEDS: CALCIUM 1250MG TABLET (500MG ELEMENTAL CALCIUM) PO SCH ×2 (14:16→17:38)
[2022-02-21] MEDS: DEXT 5%/0.45% NACL 1000ML 1,000 ML IV SCH (14:17)
[2022-02-21] MEDS ORDERED: VANCOMYCIN 1G PREMIX 200 ML IV NR (15:00)
[2022-02-21 16:00] VITALS: BP 127/84
[2022-02-21] MEDS ORDERED: LEVOFLOXACIN 500MG PREMIX 100 ML IV NR (17:00)
[2022-02-21 17:05] LABS: D-DIMER 1.74 mg/L FEU (<0.50); INR 2.3; PROTHROMBIN TIME 23.3 sec (9.6-11.0)
[2022-02-21 17:22] LABS: T4 FREE 0.98 ng/dL (0.76-1.46)
[2022-02-21] MEDS: ATENOLOL 25MG TABLET PO SCH (17:38)
[2022-02-21] MEDS: METFORMIN HCL 500MG TABLET PO SCH (18:47)
[2022-02-21 20:00] VITALS: BP 140/67
[2022-02-21] MEDS ORDERED: DEXTROSE 50% WATER 50ML SYRINGE IV PRN (20:15)
[2022-02-21] MEDS ORDERED: BLOOD SUGAR DIAGNOSTIC STRIP TEST SCH (21:00)
[2022-02-21] MEDS ORDERED: INSULIN LISPRO 100 UNITS/ML SUBCUT SCH (21:00)
[2022-02-21] MEDS: ATORVASTATIN CALCIUM 20MG TABLET PO SCH (21:28)
[2022-02-21] MEDS: TRIAMCINOLONE ACETONIDE 0.1% CREAM 15GM TOP SCH (21:29)
[2022-02-21] MEDS: PRIMIDONE 250 MG TABLET PO SCH (21:29)
[2022-02-21] MEDS: WARFARIN SODIUM 2.5MG TABLET PO SCH (21:29)
[2022-02-22] VITALS: BP 116/60
[2022-02-22] MEDS: ACETAMINOPHEN 325MG TABLET PO PRN ×3 (00:08→20:56)
[2022-02-22] MEDS: INSULIN LISPRO 100 UNITS/ML SUBCUT SCH ×5 (00:09→23:54)
[2022-02-22] MEDS: BLOOD SUGAR DIAGNOSTIC STRIP TEST SCH ×5 (00:09→23:54)
[2022-02-22] MEDS: DEXT 5%/0.45% NACL 1000ML 1,000 ML IV SCH ×3 (00:12→17:35)
[2022-02-22] MEDS ORDERED: VANCOMYCIN 500 MG in DEXT 5% WATER 100 ML IV SCH ×2 (03:00→21:00)
[2022-02-22 04:00] VITALS: BP 144/65
[2022-02-22] MEDS: SILDENAFIL CITRATE 20MG TABLET PO SCH ×3 (05:45→21:00)
[2022-02-22] MEDS: METHYLPREDNISOLONE SOD SUCC 40 MG/ML VIAL IV SCH ×3 (05:45→20:55)
[2022-02-22 07:05] LABS: HEMATOCRIT. 33.4 % (36.0-48.0); HEMOGLOBIN. 10.9 g/dL (12.0-16.0); MEAN CORPUSCULAR HEMOGLOBIN 36.4 pg (28.0-32.0); MEAN CORPUSCULAR VOLUME 111.2 fL (81.0-99.0); PLATELET 119 x1000/uL (130-400); RED BLOOD CELL COUNT 3.01 mill/uL (4.2-5.4); RED CELL DISTRIBUTION WIDTH 17.1 % (11.6-14.6)
[2022-02-22 07:22] LABS: CHLORIDE 98 mEq/L (98-107)
[2022-02-22 08:00] VITALS: BP 150/76
[2022-02-22] MEDS: METFORMIN HCL 500MG TABLET PO SCH ×2 (10:04→17:33)
[2022-02-22] MEDS: MEGESTROL ACETATE 400 MG/10 ML UDC PO SCH (10:04)
[2022-02-22] MEDS: CALCIUM 1250MG TABLET (500MG ELEMENTAL CALCIUM) PO SCH ×3 (10:04→18:53)
[2022-02-22] MEDS: ALLOPURINOL 100 MG TABLET PO SCH (10:04)
[2022-02-22] MEDS: FOLIC ACID 1MG TABLET PO SCH (10:05)
[2022-02-22] MEDS: FUROSEMIDE 20MG TABLET PO SCH (10:05)
[2022-02-22] MEDS: LOSARTAN POTASSIUM 50 MG TABLET PO SCH (10:05)
[2022-02-22] MEDS: CHOLECALCIFEROL (D3) 1000 UNIT TABLET PO SCH (10:05)
[2022-02-22] MEDS: PRIMIDONE 250 MG TABLET PO SCH ×2 (10:05→20:56)
[2022-02-22] MEDS: ATENOLOL 25MG TABLET PO SCH ×2 (10:06→17:33)
[2022-02-22] MEDS: TRIAMCINOLONE ACETONIDE 0.1% CREAM 15GM TOP SCH ×2 (10:06→20:41)
[2022-02-22 10:57] LABS: PLATELET ESTIMATE SLIGHTLY DECREASED
[2022-02-22 12:00] VITALS: BP 144/63
[2022-02-22 16:00] VITALS: BP 137/65
[2022-02-22 16:26] LABS: INR 2.7; PROTHROMBIN TIME 26.7 sec (9.6-11.0)
[2022-02-22] MEDS: LEVOFLOXACIN 250MG PREMIX 50 ML IV SCH (17:34)
[2022-02-22] MEDS: WARFARIN SODIUM 2.5MG TABLET PO SCH (17:34)
[2022-02-22 20:00] VITALS: BP 136/86
[2022-02-22] MEDS: ATORVASTATIN CALCIUM 20MG TABLET PO SCH (20:56)
[2022-02-23 01:33] LABS: PROTHROMBIN TIME 29.9 sec (9.6-11.0)
[2022-02-23] MEDS: ACETAMINOPHEN 325MG TABLET PO PRN ×4 (02:10→21:38)
[2022-02-23 04:00] VITALS: BP 126/61
[2022-02-23] MEDS: SILDENAFIL CITRATE 20MG TABLET PO SCH ×3 (05:55→21:38)
[2022-02-23] MEDS: METHYLPREDNISOLONE SOD SUCC 40 MG/ML VIAL IV SCH ×2 (05:55→13:56)
[2022-02-23] MEDS: DEXT 5%/0.45% NACL 1000ML 1,000 ML IV SCH ×3 (05:56→22:19)
[2022-02-23] MEDS: BLOOD SUGAR DIAGNOSTIC STRIP TEST SCH ×3 (05:56→18:03)
[2022-02-23] MEDS: INSULIN LISPRO 100 UNITS/ML SUBCUT SCH ×3 (05:56→17:16)
[2022-02-23 06:36] LABS: BASOPHILS % 0.1 % (0.0-2.0); HEMATOCRIT. 36.2 % (36.0-48.0); HEMOGLOBIN. 11.7 g/dL (12.0-16.0); LYMPHOCYTES % 9.7 % (20.0-50.0); MEAN CORPUSCULAR HEMOGLOBIN 36.1 pg (28.0-32.0); MEAN CORPUSCULAR VOLUME 112.3 fL (81.0-99.0); MEAN PLATELET VOLUME 10.6 fl (7.4-10.4); NEUTROPHILS % 78.2 % (40.0-76.0); PLATELET 129 x1000/uL (130-400); RED BLOOD CELL COUNT 3.23 mill/uL (4.2-5.4); RED CELL DISTRIBUTION WIDTH 17.1 % (11.6-14.6)
[2022-02-23 06:37] LABS: INR 3.5; PROTHROMBIN TIME 33.8 sec (9.6-11.0)
[2022-02-23 06:44] LABS: CHLORIDE 97 mEq/L (98-107)
[2022-02-23 07:18] LABS: VITAMIN B12 SERUM > 2000.0 pg/mL (211-911)
[2022-02-23 08:00] VITALS: BP 143/68
[2022-02-23] MEDS: CHOLECALCIFEROL (D3) 1000 UNIT TABLET PO SCH (08:34)
[2022-02-23] MEDS: PRIMIDONE 250 MG TABLET PO SCH ×2 (08:35→21:39)
[2022-02-23] MEDS: MEGESTROL ACETATE 400 MG/10 ML UDC PO SCH (08:35)
[2022-02-23] MEDS: FOLIC ACID 1MG TABLET PO SCH (08:35)
[2022-02-23] MEDS: ATENOLOL 25MG TABLET PO SCH ×2 (08:35→17:14)
[2022-02-23] MEDS: LOSARTAN POTASSIUM 50 MG TABLET PO SCH (08:35)
[2022-02-23] MEDS: ALLOPURINOL 100 MG TABLET PO SCH (08:35)
[2022-02-23] MEDS: METFORMIN HCL 500MG TABLET PO SCH ×2 (08:35→18:03)
[2022-02-23] MEDS: FUROSEMIDE 20MG TABLET PO SCH (08:35)
[2022-02-23] MEDS: CALCIUM 1250MG TABLET (500MG ELEMENTAL CALCIUM) PO SCH ×3 (08:35→17:13)
[2022-02-23] MEDS: TRIAMCINOLONE ACETONIDE 0.1% CREAM 15GM TOP SCH ×2 (08:36→22:19)
[2022-02-23] MEDS ORDERED: METHOTREXATE SODIUM 2 . 5MG TABLET PO SCH ×3 (09:00→17:00)
[2022-02-23] MEDS: ALBUTEROL (0.083%) 2.5MG/3ML NEB HHN PRN ×3 (10:11→21:29)
[2022-02-23 12:00] VITALS: BP 143/56
[2022-02-23 16:00] VITALS: BP 146/59
[2022-02-23] MEDS: LEVOFLOXACIN 250MG PREMIX 50 ML IV SCH (17:14)
[2022-02-23] MEDS ORDERED: LACTULOSE 20G/30ML UDC PO PRN (19:15)
[2022-02-23 20:00] VITALS: BP 180/78
[2022-02-23] MEDS: LACTULOSE 20G/30ML UDC PO SCH (21:35)
[2022-02-23] MEDS: ATORVASTATIN CALCIUM 20MG TABLET PO SCH (21:38)
[2022-02-23] MEDS: FUROSEMIDE 40MG TABLET PO SCH (21:39)
[2022-02-23] MEDS: POTASSIUM CHLORIDE 20MEQ TABLET SR PO SCH (21:39)
[2022-02-23] MEDS: CEFTAZIDIME PENTAHYDRATE 1 G in DEXTROSE 5% WATER 50 ML IV SCH (22:20)
[2022-02-24] VITALS (8 sets, daily range): BP systolic 142–204; BP diastolic 60–117
[2022-02-24] MEDS: METHYLPREDNISOLONE SOD SUCC 40 MG/ML VIAL IV SCH ×4 (00:02→21:29)
[2022-02-24] MEDS: AMPICILLIN 500 MG in SODIUM CHLORIDE 0.9% 50 ML IV SCH ×3 (00:02→08:21)
[2022-02-24] MEDS: BLOOD SUGAR DIAGNOSTIC STRIP TEST SCH ×5 (00:22→23:05)
[2022-02-24] MEDS: SILDENAFIL CITRATE 20MG TABLET PO SCH ×3 (05:35→21:29)
[2022-02-24] MEDS: INSULIN LISPRO 100 UNITS/ML SUBCUT SCH ×5 (06:00→23:05)
[2022-02-24 06:33] LABS: HEMATOCRIT. 34.5 % (36.0-48.0); HEMOGLOBIN. 11.3 g/dL (12.0-16.0); MEAN CORPUSCULAR VOLUME 109.9 fL (81.0-99.0); MEAN PLATELET VOLUME 10.5 fl (7.4-10.4); PLATELET 131 x1000/uL (130-400); RED BLOOD CELL COUNT 3.14 mill/uL (4.2-5.4); RED CELL DISTRIBUTION WIDTH 16.7 % (11.6-14.6)
[2022-02-24] MEDS: CEFTAZIDIME PENTAHYDRATE 1 G in DEXTROSE 5% WATER 50 ML IV SCH (06:37)
[2022-02-24 06:52] LABS: CHLORIDE 95 mEq/L (98-107)
[2022-02-24 07:44] LABS: PROTHROMBIN TIME 41.6 sec (9.6-11.0)
[2022-02-24 07:46] LABS: INR 4.4
[2022-02-24] MEDS: FUROSEMIDE 40MG TABLET PO SCH ×2 (08:11→21:29)
[2022-02-24] MEDS: ATENOLOL 25MG TABLET PO SCH (08:12)
[2022-02-24] MEDS: CHOLECALCIFEROL (D3) 1000 UNIT TABLET PO SCH (08:12)
[2022-02-24] MEDS: CALCIUM 1250MG TABLET (500MG ELEMENTAL CALCIUM) PO SCH ×3 (08:12→17:56)
[2022-02-24] MEDS: MEGESTROL ACETATE 400 MG/10 ML UDC PO SCH (08:12)
[2022-02-24] MEDS: LOSARTAN POTASSIUM 50 MG TABLET PO SCH (08:12)
[2022-02-24] MEDS: POTASSIUM CHLORIDE 20MEQ TABLET SR PO SCH (08:13)
[2022-02-24] MEDS: FOLIC ACID 1MG TABLET PO SCH (08:13)
[2022-02-24] MEDS: ALLOPURINOL 100 MG TABLET PO SCH (08:13)
[2022-02-24] MEDS: METFORMIN HCL 500MG TABLET PO SCH ×2 (08:13→17:56)
[2022-02-24] MEDS: PRIMIDONE 250 MG TABLET PO SCH ×2 (08:21→21:28)
[2022-02-24] MEDS: TRIAMCINOLONE ACETONIDE 0.1% CREAM 15GM TOP SCH ×2 (08:22→23:01)
[2022-02-24] MEDS ORDERED: PHYTONADIONE 10MG/ML AMP IM ONE (08:30)
[2022-02-24] MEDS ORDERED: AMLODIPINE 5MG TABLET PO PRN (09:00)
[2022-02-24 09:11] LABS: ALDOLASE 9.5 U/L (3.3-10.3)
[2022-02-24] MEDS ORDERED: LEVOFLOXACIN 250MG TABLET PO SCH (11:00)
[2022-02-24] MEDS: ALBUTEROL (0.083%) 2.5MG/3ML NEB HHN PRN ×2 (12:38→20:56)
[2022-02-24] MEDS: DEXT 5%/0.45% NACL 1000ML 1,000 ML IV SCH (12:45)
[2022-02-24 14:56] LABS: NUCLEATED RED BLOOD CELLS 1 /100 WBC
[2022-02-24 14:57] LABS: PLATELET ESTIMATE NORMAL
[2022-02-24] MEDS: AMPICILLIN 1000MG in SODIUM CHLORIDE 0.9% 50ML IV SCH (17:57)
[2022-02-24] MEDS ORDERED: WARFARIN SODIUM 2.5MG TABLET PO SCH (18:00)
[2022-02-24 19:09] LABS: ANGIOTENSION CONVERTING ENZYME 25 U/L (14-82)
[2022-02-24] MEDS: ATORVASTATIN CALCIUM 20MG TABLET PO SCH (21:28)
[2022-02-24] MEDS: CARVEDILOL 6.25 MG TABLET PO SCH (21:29)
[2022-02-24] MEDS: LACTULOSE 20G/30ML UDC PO SCH (21:31)
[2022-02-25] VITALS (12 sets, daily range): BP systolic 89–155; BP diastolic 50–84
[2022-02-25 01:37] LABS: PROTHROMBIN TIME 29.9 sec (9.6-11.0)
[2022-02-25] MEDS: ALBUTEROL (0.083%) 2.5MG/3ML NEB HHN PRN (02:28)
[2022-02-25] MEDS: AMPICILLIN 1000MG in SODIUM CHLORIDE 0.9% 50ML IV SCH ×2 (05:25→17:12)
[2022-02-25] MEDS: METHYLPREDNISOLONE SOD SUCC 40 MG/ML VIAL IV SCH ×3 (05:25→21:50)
[2022-02-25] MEDS: CEFTAZIDIME PENTAHYDRATE 1 G in DEXTROSE 5% WATER 50 ML IV SCH (05:34)
[2022-02-25] MEDS: SILDENAFIL CITRATE 20MG TABLET PO SCH ×3 (05:37→21:51)
[2022-02-25] MEDS: BLOOD SUGAR DIAGNOSTIC STRIP TEST SCH ×4 (05:37→23:51)
[2022-02-25] MEDS: INSULIN LISPRO 100 UNITS/ML SUBCUT SCH ×3 (05:42→17:12)
[2022-02-25] MEDS: CHOLECALCIFEROL (D3) 1000 UNIT TABLET PO SCH (08:27)
[2022-02-25] MEDS: CALCIUM 1250MG TABLET (500MG ELEMENTAL CALCIUM) PO SCH ×3 (08:27→17:09)
[2022-02-25] MEDS: FUROSEMIDE 40MG TABLET PO SCH ×2 (08:27→21:51)
[2022-02-25] MEDS: LOSARTAN POTASSIUM 50 MG TABLET PO SCH (08:28)
[2022-02-25] MEDS: ALLOPURINOL 100 MG TABLET PO SCH (08:28)
[2022-02-25] MEDS: METFORMIN HCL 500MG TABLET PO SCH ×2 (08:28→17:08)
[2022-02-25] MEDS: FOLIC ACID 1MG TABLET PO SCH (08:28)
[2022-02-25] MEDS: CARVEDILOL 6.25 MG TABLET PO SCH ×2 (08:28→21:51)
[2022-02-25] MEDS: PRIMIDONE 250 MG TABLET PO SCH ×2 (08:28→21:51)
[2022-02-25] MEDS: POTASSIUM CHLORIDE 20MEQ TABLET SR PO SCH (08:28)
[2022-02-25] MEDS: TRIAMCINOLONE ACETONIDE 0.1% CREAM 15GM TOP SCH ×2 (08:29→21:52)
[2022-02-25] MEDS: MEGESTROL ACETATE 400 MG/10 ML UDC PO SCH (08:29)
[2022-02-25] MEDS: DEXT 5%/0.45% NACL 1000ML 1,000 ML IV SCH (08:29)
[2022-02-25 08:31] LABS: BG BASE EXCESS 8.5 mmol/L (-2.0-2.0); BG CARBOXYHEMOGLOBIN 0.7 % (0.5-1.5); BG DEOXYHEMOGLOBIN 2.3 % (0.0-5.0); BG FRACTION INSPIRED OXYGEN 34; BG HCO3 ACT 33.5 mmol/L (22.0-26.0); BG METHEMOGLOBIN 0.3 % (0.0-1.5); BG OXYGEN SATURATION 97.7 % (92.0-98.5); BG OXYHEMOGLOBIN 96.7 % (94.0-97.0); BG PCO2 48.8 mmHg (35.0-45.0); BG PH 7.455 (7.350-7.450); BG PO2 95.7 mmHg (75.0-100.0); BG SAMPLE SITE LEFT BRACHIAL; BG TOTAL HEMOGLOBIN 10.7 g/dL (12.0-18.0); BG VENT MODE NASAL CANNULA
[2022-02-25 10:45] LABS: HEMATOCRIT. 32.7 % (36.0-48.0); HEMOGLOBIN. 10.3 g/dL (12.0-16.0); MEAN CORPUSCULAR HEMOGLOBIN 35.7 pg (28.0-32.0); MEAN CORPUSCULAR VOLUME 112.9 fL (81.0-99.0); MEAN PLATELET VOLUME 10.3 fl (7.4-10.4); PLATELET 119 x1000/uL (130-400); RED CELL DISTRIBUTION WIDTH 17.5 % (11.6-14.6)
[2022-02-25 10:53] LABS: CHLORIDE 97 mEq/L (98-107)
[2022-02-25 10:56] LABS: INR 2.6
[2022-02-25 11:08] LABS: PLATELET ESTIMATE DECREASED
[2022-02-25] MEDS: ALBUTEROL (0.083%) 2.5MG/3ML NEB HHN SCH ×2 (14:31→19:30)
[2022-02-25 15:09] LABS: ANA IFA Negative (.)
[2022-02-25] MEDS ORDERED: WARFARIN SODIUM 1MG TABLET PO SCH (18:00)
[2022-02-25] MEDS ORDERED: POLYETHYLENE GLYCOL-ELECTROLYTE 4000ML PO NR (21:30)
[2022-02-25] MEDS: LACTULOSE 20G/30ML UDC PO SCH (21:51)
[2022-02-25] MEDS: ATORVASTATIN CALCIUM 20MG TABLET PO SCH (21:51)
[2022-02-25] MEDS ORDERED: MAGNESIUM CITRATE 300ML SOLUTION PO NR (22:30)
[2022-02-26] VITALS (12 sets, daily range): BP systolic 91–144; BP diastolic 45–97
[2022-02-26] MEDS: ALBUTEROL (0.083%) 2.5MG/3ML NEB HHN SCH ×4 (01:54→19:45)
[2022-02-26] MEDS: DEXT 5%/0.45% NACL 1000ML 1,000 ML IV SCH (03:30)
[2022-02-26] MEDS: METHYLPREDNISOLONE SOD SUCC 40 MG/ML VIAL IV SCH ×3 (05:31→21:40)
[2022-02-26] MEDS: CEFTAZIDIME PENTAHYDRATE 1 G in DEXTROSE 5% WATER 50 ML IV SCH (05:31)
[2022-02-26] MEDS: AMPICILLIN 1000MG in SODIUM CHLORIDE 0.9% 50ML IV SCH ×2 (05:31→17:52)
[2022-02-26] MEDS: SILDENAFIL CITRATE 20MG TABLET PO SCH ×3 (05:32→21:40)
[2022-02-26] MEDS: BLOOD SUGAR DIAGNOSTIC STRIP TEST SCH ×3 (05:32→18:16)
[2022-02-26] MEDS: INSULIN LISPRO 100 UNITS/ML SUBCUT SCH ×4 (06:00→18:00)
[2022-02-26 08:26] LABS: INR 1.9; PROTHROMBIN TIME 19.6 sec (9.6-11.0)
[2022-02-26 08:31] LABS: HEMATOCRIT. 29.2 % (36.0-48.0); HEMOGLOBIN. 9.7 g/dL (12.0-16.0); MEAN CORPUSCULAR HEMOGLOBIN 36.3 pg (28.0-32.0); MEAN CORPUSCULAR VOLUME 109.5 fL (81.0-99.0); PLATELET 115 x1000/uL (130-400); RED BLOOD CELL COUNT 2.66 mill/uL (4.2-5.4); RED CELL DISTRIBUTION WIDTH 16.9 % (11.6-14.6)
[2022-02-26] MEDS: METFORMIN HCL 500MG TABLET PO SCH ×2 (09:03→17:52)
[2022-02-26] MEDS: FOLIC ACID 1MG TABLET PO SCH (09:04)
[2022-02-26] MEDS: LOSARTAN POTASSIUM 50 MG TABLET PO SCH (09:04)
[2022-02-26] MEDS: FUROSEMIDE 40MG TABLET PO SCH ×2 (09:04→21:41)
[2022-02-26] MEDS: POTASSIUM CHLORIDE 20MEQ TABLET SR PO SCH (09:04)
[2022-02-26] MEDS: CARVEDILOL 6.25 MG TABLET PO SCH ×2 (09:04→21:41)
[2022-02-26] MEDS: MEGESTROL ACETATE 400 MG/10 ML UDC PO SCH (09:04)
[2022-02-26] MEDS: CHOLECALCIFEROL (D3) 1000 UNIT TABLET PO SCH (09:05)
[2022-02-26] MEDS: PRIMIDONE 250 MG TABLET PO SCH ×2 (09:05→21:41)
[2022-02-26] MEDS: TRIAMCINOLONE ACETONIDE 0.1% CREAM 15GM TOP SCH ×2 (09:05→21:57)
[2022-02-26] MEDS: ALLOPURINOL 100 MG TABLET PO SCH (09:05)
[2022-02-26] MEDS: CALCIUM 1250MG TABLET (500MG ELEMENTAL CALCIUM) PO SCH ×3 (09:05→17:52)
[2022-02-26 09:18] LABS: CHLORIDE 98 mEq/L (98-107)
[2022-02-26 14:30] LABS: PLATELET ESTIMATE SLIGHTLY DECREASED
[2022-02-26] MEDS ORDERED: WARFARIN SODIUM 2.5MG TABLET PO SCH (18:00)
[2022-02-26] MEDS: ATORVASTATIN CALCIUM 20MG TABLET PO SCH (21:40)
[2022-02-26] MEDS: LACTULOSE 20G/30ML UDC PO SCH (21:40)
[2022-02-27] VITALS (14 sets, daily range): BP systolic 95–129; BP diastolic 43–69
[2022-02-27] MEDS: BLOOD SUGAR DIAGNOSTIC STRIP TEST SCH ×5 (00:09→23:28)
[2022-02-27] MEDS: DEXT 5%/0.45% NACL 1000ML 1,000 ML IV SCH ×2 (00:09→21:02)
[2022-02-27] MEDS: ALBUTEROL (0.083%) 2.5MG/3ML NEB HHN SCH ×4 (02:35→21:49)
[2022-02-27] MEDS: CEFTAZIDIME PENTAHYDRATE 1 G in DEXTROSE 5% WATER 50 ML IV SCH (05:46)
[2022-02-27] MEDS: METHYLPREDNISOLONE SOD SUCC 40 MG/ML VIAL IV SCH ×3 (05:46→21:02)
[2022-02-27] MEDS: AMPICILLIN 1000MG in SODIUM CHLORIDE 0.9% 50ML IV SCH ×2 (05:46→17:25)
[2022-02-27] MEDS: SILDENAFIL CITRATE 20MG TABLET PO SCH ×3 (05:47→21:00)
[2022-02-27] MEDS: INSULIN LISPRO 100 UNITS/ML SUBCUT SCH ×5 (05:47→23:29)
[2022-02-27] MEDS: ACETAMINOPHEN 325MG TABLET PO PRN ×4 (06:04→21:00)
[2022-02-27] MEDS: ONDANSETRON HCL 4MG/2ML INJ IV PRN ×2 (06:10→09:42)
[2022-02-27 06:22] LABS: HEMATOCRIT. 27.2 % (36.0-48.0); MEAN CORPUSCULAR HEMOGLOBIN 35.8 pg (28.0-32.0); MEAN PLATELET VOLUME 10.4 fl (7.4-10.4); PLATELET 101 x1000/uL (130-400); RED BLOOD CELL COUNT 2.52 mill/uL (4.2-5.4); RED CELL DISTRIBUTION WIDTH 16.8 % (11.6-14.6)
[2022-02-27 06:44] LABS: INR 1.9; PROTHROMBIN TIME 19.8 sec (9.6-11.0)
[2022-02-27 07:15] LABS: CHLORIDE 99 mEq/L (98-107)
[2022-02-27] MEDS: CARVEDILOL 6.25 MG TABLET PO SCH ×2 (09:00→21:00)
[2022-02-27] MEDS: CHOLECALCIFEROL (D3) 1000 UNIT TABLET PO SCH (09:19)
[2022-02-27] MEDS: MEGESTROL ACETATE 400 MG/10 ML UDC PO SCH (09:19)
[2022-02-27] MEDS: LOSARTAN POTASSIUM 50 MG TABLET PO SCH (09:19)
[2022-02-27] MEDS: FUROSEMIDE 40MG TABLET PO SCH ×2 (09:20→21:00)
[2022-02-27] MEDS: FOLIC ACID 1MG TABLET PO SCH (09:20)
[2022-02-27] MEDS: CALCIUM 1250MG TABLET (500MG ELEMENTAL CALCIUM) PO SCH ×3 (09:20→17:25)
[2022-02-27] MEDS: POTASSIUM CHLORIDE 20MEQ TABLET SR PO SCH (09:20)
[2022-02-27] MEDS: ALLOPURINOL 100 MG TABLET PO SCH (09:20)
[2022-02-27] MEDS: METFORMIN HCL 500MG TABLET PO SCH ×2 (09:20→17:25)
[2022-02-27] MEDS: TRIAMCINOLONE ACETONIDE 0.1% CREAM 15GM TOP SCH ×2 (09:21→21:02)
[2022-02-27] MEDS: LACTULOSE 20G/30ML UDC PO PRN (15:18)
[2022-02-27 17:27] LABS: PLATELET ESTIMATE DECREASED
[2022-02-27] MEDS ORDERED: WARFARIN SODIUM 2.5MG TABLET PO SCH (18:00)
[2022-02-27] MEDS: LACTULOSE 20G/30ML UDC PO SCH (20:59)
[2022-02-27] MEDS: ATORVASTATIN CALCIUM 20MG TABLET PO SCH (21:00)
[2022-02-28] VITALS (12 sets, daily range): BP systolic 108–144; BP diastolic 51–83
[2022-02-28] MEDS: ALBUTEROL (0.083%) 2.5MG/3ML NEB HHN SCH ×5 (02:55→19:49)
[2022-02-28] MEDS: CEFTAZIDIME PENTAHYDRATE 1 G in DEXTROSE 5% WATER 50 ML IV SCH (05:45)
[2022-02-28] MEDS: AMPICILLIN 1000MG in SODIUM CHLORIDE 0.9% 50ML IV SCH ×2 (05:45→17:39)
[2022-02-28] MEDS: METHYLPREDNISOLONE SOD SUCC 40 MG/ML VIAL IV SCH ×3 (05:46→20:27)
[2022-02-28] MEDS: INSULIN LISPRO 100 UNITS/ML SUBCUT SCH ×4 (05:46→23:19)
[2022-02-28] MEDS: BLOOD SUGAR DIAGNOSTIC STRIP TEST SCH ×4 (05:46→23:13)
[2022-02-28] MEDS: SILDENAFIL CITRATE 20MG TABLET PO SCH ×3 (05:46→22:31)
[2022-02-28 06:56] LABS: INR 2.4; PROTHROMBIN TIME 23.8 sec (9.6-11.0)
[2022-02-28 07:11] LABS: CHLORIDE 98 mEq/L (98-107)
[2022-02-28] MEDS: CARVEDILOL 6.25 MG TABLET PO SCH ×2 (09:00→20:26)
[2022-02-28] MEDS: CALCIUM 1250MG TABLET (500MG ELEMENTAL CALCIUM) PO SCH ×3 (09:22→17:39)
[2022-02-28] MEDS: POTASSIUM CHLORIDE 20MEQ TABLET SR PO SCH (09:23)
[2022-02-28] MEDS: METFORMIN HCL 500MG TABLET PO SCH ×2 (09:23→17:44)
[2022-02-28] MEDS: FUROSEMIDE 40MG TABLET PO SCH ×2 (09:23→20:26)
[2022-02-28] MEDS: CHOLECALCIFEROL (D3) 1000 UNIT TABLET PO SCH (09:23)
[2022-02-28] MEDS: ALLOPURINOL 100 MG TABLET PO SCH (09:23)
[2022-02-28] MEDS: LOSARTAN POTASSIUM 50 MG TABLET PO SCH (09:23)
[2022-02-28] MEDS: FOLIC ACID 1MG TABLET PO SCH (09:24)
[2022-02-28 09:25] LABS: HEMATOCRIT. 26.8 % (36.0-48.0); HEMOGLOBIN. 8.6 g/dL (12.0-16.0); MEAN CORPUSCULAR HEMOGLOBIN 35.9 pg (28.0-32.0); MEAN CORPUSCULAR VOLUME 111.8 fL (81.0-99.0); MEAN PLATELET VOLUME 10.4 fl (7.4-10.4); PLATELET 98 x1000/uL (130-400)
[2022-02-28] MEDS: TRIAMCINOLONE ACETONIDE 0.1% CREAM 15GM TOP SCH ×2 (09:26→20:27)
[2022-02-28] MEDS: MEGESTROL ACETATE 400 MG/10 ML UDC PO SCH (09:26)
[2022-02-28] MEDS: ACETAMINOPHEN 325MG TABLET PO PRN ×2 (09:30→17:49)
[2022-02-28 09:37] LABS: BG BASE EXCESS 3.8 mmol/L (-2.0-2.0); BG CARBOXYHEMOGLOBIN 0.3 % (0.5-1.5); BG DEOXYHEMOGLOBIN 11.2 % (0.0-5.0); BG FRACTION INSPIRED OXYGEN 32; BG HCO3 ACT 27.8 mmol/L (22.0-26.0); BG METHEMOGLOBIN 1.1 % (0.0-1.5); BG OXYGEN SATURATION 88.6 % (92.0-98.5); BG OXYHEMOGLOBIN 87.4 % (94.0-97.0); BG PCO2 39.6 mmHg (35.0-45.0); BG PH 7.464 (7.350-7.450); BG PO2 53.4 mmHg (75.0-100.0); BG SAMPLE SITE RIGHT RADIAL; BG TOTAL HEMOGLOBIN 9.6 g/dL (12.0-18.0); BG VENT MODE NASAL CANNULA
[2022-02-28 12:19] LABS: BG BASE EXCESS 3.6 mmol/L (-2.0-2.0); BG CARBOXYHEMOGLOBIN 0.4 % (0.5-1.5); BG FRACTION INSPIRED OXYGEN 40; BG HCO3 ACT 28.1 mmol/L (22.0-26.0); BG OXYHEMOGLOBIN 95.6 % (94.0-97.0); BG PH 7.443 (7.350-7.450); BG PO2 78.7 mmHg (75.0-100.0); BG SAMPLE SITE RIGHT RADIAL; BG TOTAL HEMOGLOBIN 9.1 g/dL (12.0-18.0); BG VENT MODE NASAL CANNULA
[2022-02-28] MEDS: DEXT 5%/0.45% NACL 1000ML 1,000 ML IV SCH (17:49)
[2022-02-28] MEDS ORDERED: WARFARIN SODIUM 2MG TABLET PO NR (18:00)
[2022-02-28] MEDS: LACTULOSE 20G/30ML UDC PO SCH (20:26)
[2022-02-28] MEDS: ATORVASTATIN CALCIUM 20MG TABLET PO SCH (20:26)
[2022-02-28 21:00] LABS: PLATELET ESTIMATE DECREASED
[2022-03-01] VITALS (12 sets, daily range): BP systolic 96–127; BP diastolic 49–76
[2022-03-01] MEDS: ALBUTEROL (0.083%) 2.5MG/3ML NEB HHN SCH ×4 (01:36→20:25)
[2022-03-01] MEDS: ACETAMINOPHEN 325MG TABLET PO PRN ×3 (04:48→19:50)
[2022-03-01] MEDS: CEFTAZIDIME PENTAHYDRATE 1 G in DEXTROSE 5% WATER 50 ML IV SCH (05:42)
[2022-03-01] MEDS: METHYLPREDNISOLONE SOD SUCC 40 MG/ML VIAL IV SCH ×3 (05:43→22:12)
[2022-03-01] MEDS: SILDENAFIL CITRATE 20MG TABLET PO SCH ×3 (05:49→22:00)
[2022-03-01] MEDS: BLOOD SUGAR DIAGNOSTIC STRIP TEST SCH ×4 (05:49→23:25)
[2022-03-01] MEDS: INSULIN LISPRO 100 UNITS/ML SUBCUT SCH ×4 (06:00→23:58)
[2022-03-01 06:39] LABS: INR 3.3; PROTHROMBIN TIME 32.4 sec (9.6-11.0)
[2022-03-01] MEDS: CARVEDILOL 6.25 MG TABLET PO SCH (09:00)
[2022-03-01] MEDS: LOSARTAN POTASSIUM 50 MG TABLET PO SCH (09:00)
[2022-03-01] MEDS: FUROSEMIDE 40MG TABLET PO SCH (11:06)
[2022-03-01] MEDS: CALCIUM 1250MG TABLET (500MG ELEMENTAL CALCIUM) PO SCH ×3 (11:06→17:00)
[2022-03-01] MEDS: FOLIC ACID 1MG TABLET PO SCH (11:06)
[2022-03-01] MEDS: CHOLECALCIFEROL (D3) 1000 UNIT TABLET PO SCH (11:06)
[2022-03-01] MEDS: LACTULOSE 20G/30ML UDC PO PRN (11:06)
[2022-03-01] MEDS: METFORMIN HCL 500MG TABLET PO SCH ×2 (11:07→18:00)
[2022-03-01] MEDS: POTASSIUM CHLORIDE 20MEQ TABLET SR PO SCH (11:07)
[2022-03-01] MEDS: ALLOPURINOL 100 MG TABLET PO SCH (11:07)
[2022-03-01] MEDS: DEXT 5%/0.45% NACL 1000ML 1,000 ML IV SCH (14:38)
[2022-03-01] MEDS: TRIAMCINOLONE ACETONIDE 0.1% CREAM 15GM TOP SCH ×2 (14:39→21:06)
[2022-03-01] MEDS: MEGESTROL ACETATE 400 MG/10 ML UDC PO SCH (14:47)
[2022-03-01] MEDS ORDERED: AMIODARONE HCL 150 MG in DEXT 5% WATER 100 ML IV NR (16:00)
[2022-03-01] MEDS: AMIODARONE HCL 900 MG in DEXT 5% WATER 500 ML IV SCH (16:21)
[2022-03-01] MEDS: ONDANSETRON HCL 4MG/2ML INJ IV PRN (19:50)
[2022-03-01] MEDS: LACTULOSE 20G/30ML UDC PO SCH (21:00)
[2022-03-01] MEDS: CARVEDILOL 12.5MG TABLET PO SCH (21:06)
[2022-03-01] MEDS: ATORVASTATIN CALCIUM 20MG TABLET PO SCH (21:06)
[2022-03-02] VITALS (12 sets, daily range): BP systolic 101–137; BP diastolic 50–96
[2022-03-02] MEDS: ONDANSETRON HCL 4MG/2ML INJ IV PRN (00:01)
[2022-03-02] MEDS: ACETAMINOPHEN 325MG TABLET PO PRN ×3 (00:01→21:09)
[2022-03-02] MEDS: ALBUTEROL (0.083%) 2.5MG/3ML NEB HHN SCH ×4 (00:58→20:23)
[2022-03-02] MEDS: BLOOD SUGAR DIAGNOSTIC STRIP TEST SCH ×4 (05:44→23:15)
[2022-03-02] MEDS: METHYLPREDNISOLONE SOD SUCC 40 MG/ML VIAL IV SCH ×3 (06:03→21:08)
[2022-03-02] MEDS: SILDENAFIL CITRATE 20MG TABLET PO SCH ×3 (06:04→21:10)
[2022-03-02 06:14] LABS: CHLORIDE 97 mEq/L (98-107)
[2022-03-02 06:20] LABS: HEMATOCRIT. 23.6 % (36.0-48.0); HEMOGLOBIN. 7.9 g/dL (12.0-16.0); MEAN CORPUSCULAR HEMOGLOBIN 36.5 pg (28.0-32.0); MEAN CORPUSCULAR VOLUME 108.8 fL (81.0-99.0); MEAN PLATELET VOLUME 10.6 fl (7.4-10.4); PLATELET 79 x1000/uL (130-400); RED BLOOD CELL COUNT 2.17 mill/uL (4.2-5.4); RED CELL DISTRIBUTION WIDTH 16.9 % (11.6-14.6)
[2022-03-02] MEDS: INSULIN LISPRO 100 UNITS/ML SUBCUT SCH ×4 (06:22→23:15)
[2022-03-02 06:24] LABS: INR 3.8
[2022-03-02] MEDS: CHOLECALCIFEROL (D3) 1000 UNIT TABLET PO SCH (08:26)
[2022-03-02] MEDS: MEGESTROL ACETATE 400 MG/10 ML UDC PO SCH (08:26)
[2022-03-02] MEDS: POTASSIUM CHLORIDE 20MEQ TABLET SR PO SCH (08:26)
[2022-03-02] MEDS: DEXT 5%/0.45% NACL 1000ML 1,000 ML IV SCH (08:26)
[2022-03-02] MEDS: ALLOPURINOL 100 MG TABLET PO SCH (08:27)
[2022-03-02] MEDS: FOLIC ACID 1MG TABLET PO SCH (08:27)
[2022-03-02] MEDS: CALCIUM 1250MG TABLET (500MG ELEMENTAL CALCIUM) PO SCH ×3 (08:27→17:15)
[2022-03-02] MEDS: METFORMIN HCL 500MG TABLET PO SCH ×2 (08:27→17:15)
[2022-03-02] MEDS: TRIAMCINOLONE ACETONIDE 0.1% CREAM 15GM TOP SCH ×2 (08:28→21:10)
[2022-03-02] MEDS: CARVEDILOL 12.5MG TABLET PO SCH ×2 (08:28→21:09)
[2022-03-02] MEDS: LOSARTAN POTASSIUM 50 MG TABLET PO SCH (08:28)
[2022-03-02] MEDS ORDERED: FUROSEMIDE 40MG TABLET PO SCH (09:00)
[2022-03-02 12:47] LABS: BG BASE EXCESS 3.6 mmol/L (-2.0-2.0); BG CARBOXYHEMOGLOBIN 0.4 % (0.5-1.5); BG DEOXYHEMOGLOBIN 2.8 % (0.0-5.0); BG FRACTION INSPIRED OXYGEN 40; BG HCO3 ACT 27.3 mmol/L (22.0-26.0); BG METHEMOGLOBIN 0.4 % (0.0-1.5); BG OXYGEN SATURATION 97.2 % (92.0-98.5); BG OXYHEMOGLOBIN 96.4 % (94.0-97.0); BG PCO2 37.4 mmHg (35.0-45.0); BG PH 7.481 (7.350-7.450); BG PO2 91.9 mmHg (75.0-100.0); BG SAMPLE SITE RIGHT RADIAL; BG TOTAL HEMOGLOBIN 8.8 g/dL (12.0-18.0); BG VENT MODE NASAL CANNULA
[2022-03-02 13:11] LABS: ATYPICAL P-ANCA <1:20 titer (Neg:<1:20); CYTOPLASMIC C-ANCA <1:20 titer (Neg:<1:20); PERINUCLEAR P-ANCA <1:20 titer (Neg:<1:20)
[2022-03-02] MEDS ORDERED: MORPHINE SULFATE 2 MG/ML CPJ (NOT FOR IM USE) IV NR (13:45)
[2022-03-02] MEDS ORDERED: NALOXONE HCL 0.4MG/ML VIAL IV PRN (14:00)
[2022-03-02] MEDS: AMIODARONE HCL 900 MG in DEXT 5% WATER 500 ML IV SCH (16:12)
[2022-03-02] MEDS: TRAMADOL 50MG TABLET PO PRN (17:16)
[2022-03-02 17:31] LABS: PLATELET ESTIMATE DECREASED
[2022-03-02] MEDS: LACTULOSE 20G/30ML UDC PO SCH (21:08)
[2022-03-02] MEDS: ATORVASTATIN CALCIUM 20MG TABLET PO SCH (21:10)
[2022-03-02] MEDS: AMIODARONE HCL 200 MG TABLET PO SCH (21:10)
[2022-03-03] VITALS (13 sets, daily range): BP systolic 102–138; BP diastolic 52–69
[2022-03-03] MEDS: ALBUTEROL (0.083%) 2.5MG/3ML NEB HHN SCH ×4 (01:55→20:50)
[2022-03-03] MEDS: DEXT 5%/0.45% NACL 1000ML 1,000 ML IV SCH ×2 (04:27→23:24)
[2022-03-03] MEDS: SILDENAFIL CITRATE 20MG TABLET PO SCH ×3 (05:16→21:24)
[2022-03-03] MEDS: METHYLPREDNISOLONE SOD SUCC 40 MG/ML VIAL IV SCH ×3 (05:16→21:24)
[2022-03-03] MEDS: INSULIN LISPRO 100 UNITS/ML SUBCUT SCH ×4 (05:19→23:24)
[2022-03-03] MEDS: BLOOD SUGAR DIAGNOSTIC STRIP TEST SCH ×4 (05:19→23:24)
[2022-03-03 07:01] LABS: INR 2.5
[2022-03-03] MEDS: MEGESTROL ACETATE 400 MG/10 ML UDC PO SCH (08:24)
[2022-03-03] MEDS: METFORMIN HCL 500MG TABLET PO SCH ×2 (08:24→17:18)
[2022-03-03] MEDS: CALCIUM 1250MG TABLET (500MG ELEMENTAL CALCIUM) PO SCH ×3 (08:24→17:18)
[2022-03-03] MEDS: AMIODARONE HCL 200 MG TABLET PO SCH ×2 (08:24→21:23)
[2022-03-03] MEDS: ALLOPURINOL 100 MG TABLET PO SCH (08:24)
[2022-03-03] MEDS: CHOLECALCIFEROL (D3) 1000 UNIT TABLET PO SCH (08:24)
[2022-03-03] MEDS: FOLIC ACID 1MG TABLET PO SCH (08:24)
[2022-03-03] MEDS: POTASSIUM CHLORIDE 20MEQ TABLET SR PO SCH (08:25)
[2022-03-03] MEDS: CARVEDILOL 12.5MG TABLET PO SCH ×2 (08:25→21:23)
[2022-03-03] MEDS: LOSARTAN POTASSIUM 50 MG TABLET PO SCH (08:25)
[2022-03-03] MEDS: TRIAMCINOLONE ACETONIDE 0.1% CREAM 15GM TOP SCH ×2 (08:25→21:25)
[2022-03-03] MEDS: FUROSEMIDE 100MG/10ML VIAL IVP SCH (08:25)
[2022-03-03 13:11] LABS: ACTIN (SMOOTH MUSCLE) ANTIBODY 7 Units (0-19)
[2022-03-03 17:35] LABS: HEMATOCRIT 22.2 % (36.0-48.0); HEMOGLOBIN 7.1 g/dL (12.0-16.0); MEAN CORPUSCULAR HEMOGLOBIN 36.1 pg (28.0-32.0); MEAN CORPUSCULAR VOLUME 112.3 fL (81.0-99.0); PLATELET 60 x1000/uL (130-400); RED BLOOD CELL COUNT 1.98 mill/uL (4.2-5.4); RED CELL DISTRIBUTION WIDTH 16.5 % (11.6-14.6)
[2022-03-03] MEDS: LACTULOSE 20G/30ML UDC PO SCH (21:22)
[2022-03-03] MEDS: ATORVASTATIN CALCIUM 20MG TABLET PO SCH (21:23)
[2022-03-04] VITALS (17 sets, daily range): BP systolic 105–138; BP diastolic 53–85
[2022-03-04] MEDS: ALBUTEROL (0.083%) 2.5MG/3ML NEB HHN SCH ×4 (00:55→19:46)
[2022-03-04 04:24] LABS: HEMATOCRIT. 29.7 % (36.0-48.0); HEMOGLOBIN. 9.9 g/dL (12.0-16.0); MEAN CORPUSCULAR HEMOGLOBIN 34.4 pg (28.0-32.0); MEAN CORPUSCULAR VOLUME 103.2 fL (81.0-99.0); MEAN PLATELET VOLUME 10.3 fl (7.4-10.4); RED BLOOD CELL COUNT 2.88 mill/uL (4.2-5.4); RED CELL DISTRIBUTION WIDTH 20.4 % (11.6-14.6)
[2022-03-04 04:33] LABS: CHLORIDE 98 mEq/L (98-107)
[2022-03-04 04:53] LABS: PLATELET 49 x1000/uL (130-400)
[2022-03-04 04:54] LABS: CREATINE KINASE 25 IU/L (26-192); T4 FREE 0.71 ng/dL (0.76-1.46)
[2022-03-04 05:20] LABS: INR 1.8; PROTHROMBIN TIME 18.7 sec (9.6-11.0)
[2022-03-04] MEDS: BLOOD SUGAR DIAGNOSTIC STRIP TEST SCH ×3 (05:32→17:52)
[2022-03-04] MEDS: SILDENAFIL CITRATE 20MG TABLET PO SCH ×3 (06:39→21:41)
[2022-03-04] MEDS: METHYLPREDNISOLONE SOD SUCC 40 MG/ML VIAL IV SCH ×3 (06:40→21:39)
[2022-03-04] MEDS: INSULIN LISPRO 100 UNITS/ML SUBCUT SCH ×3 (06:41→18:12)
[2022-03-04] MEDS: POTASSIUM CHLORIDE 20MEQ TABLET SR PO SCH (09:16)
[2022-03-04] MEDS: CALCIUM 1250MG TABLET (500MG ELEMENTAL CALCIUM) PO SCH ×3 (09:16→17:00)
[2022-03-04] MEDS: FOLIC ACID 1MG TABLET PO SCH (09:16)
[2022-03-04] MEDS: MEGESTROL ACETATE 400 MG/10 ML UDC PO SCH (09:17)
[2022-03-04] MEDS: FUROSEMIDE 100MG/10ML VIAL IVP SCH (09:17)
[2022-03-04] MEDS: CHOLECALCIFEROL (D3) 1000 UNIT TABLET PO SCH (09:17)
[2022-03-04] MEDS: AMIODARONE HCL 200 MG TABLET PO SCH ×2 (09:17→21:39)
[2022-03-04] MEDS: ALLOPURINOL 100 MG TABLET PO SCH (09:18)
[2022-03-04] MEDS: LOSARTAN POTASSIUM 50 MG TABLET PO SCH (09:18)
[2022-03-04] MEDS: METFORMIN HCL 500MG TABLET PO SCH ×2 (09:18→18:00)
[2022-03-04] MEDS: CARVEDILOL 12.5MG TABLET PO SCH ×2 (09:18→21:38)
[2022-03-04] MEDS: TRIAMCINOLONE ACETONIDE 0.1% CREAM 15GM TOP SCH ×2 (09:19→21:40)
[2022-03-04] MEDS: ONDANSETRON HCL 4MG/2ML INJ IV PRN (13:44)
[2022-03-04] MEDS: TRAMADOL 50MG TABLET PO PRN (13:45)
[2022-03-04] MEDS: DEXT 5%/0.45% NACL 1000ML 1,000 ML IV SCH (20:41)
[2022-03-04] MEDS: LACTULOSE 20G/30ML UDC PO SCH (21:38)
[2022-03-04] MEDS: ATORVASTATIN CALCIUM 20MG TABLET PO SCH (21:39)
[2022-03-05] VITALS (12 sets, daily range): BP systolic 111–153; BP diastolic 50–83
[2022-03-05] MEDS: ALBUTEROL (0.083%) 2.5MG/3ML NEB HHN SCH ×4 (00:45→21:04)
[2022-03-05] MEDS: INSULIN LISPRO 100 UNITS/ML SUBCUT SCH ×4 (06:00→18:00)
[2022-03-05] MEDS: METHYLPREDNISOLONE SOD SUCC 40 MG/ML VIAL IV SCH ×3 (06:27→21:14)
[2022-03-05] MEDS: SILDENAFIL CITRATE 20MG TABLET PO SCH ×3 (06:27→21:14)
[2022-03-05] MEDS: BLOOD SUGAR DIAGNOSTIC STRIP TEST SCH ×5 (06:27→23:47)
[2022-03-05 07:50] LABS: INR 1.5; PROTHROMBIN TIME 15.8 sec (9.6-11.0)
[2022-03-05] MEDS: MEGESTROL ACETATE 400 MG/10 ML UDC PO SCH (08:16)
[2022-03-05] MEDS: LOSARTAN POTASSIUM 50 MG TABLET PO SCH (08:17)
[2022-03-05] MEDS: POTASSIUM CHLORIDE 20MEQ TABLET SR PO SCH (08:17)
[2022-03-05] MEDS: FUROSEMIDE 40MG/4ML VIAL IVP SCH (08:17)
[2022-03-05] MEDS: METFORMIN HCL 500MG TABLET PO SCH ×2 (08:17→17:55)
[2022-03-05] MEDS: AMIODARONE HCL 200 MG TABLET PO SCH ×2 (08:17→21:13)
[2022-03-05] MEDS: CARVEDILOL 12.5MG TABLET PO SCH ×2 (08:18→21:14)
[2022-03-05] MEDS: CHOLECALCIFEROL (D3) 1000 UNIT TABLET PO SCH (08:18)
[2022-03-05] MEDS: FOLIC ACID 1MG TABLET PO SCH (08:18)
[2022-03-05] MEDS: ALLOPURINOL 100 MG TABLET PO SCH (08:18)
[2022-03-05 08:36] LABS: NUCLEATED RED BLOOD CELLS 2 /100 WBC; PLATELET ESTIMATE MARKEDLY DECREASED
[2022-03-05] MEDS ORDERED: FUROSEMIDE 40MG TABLET PO SCH (09:00)
[2022-03-05] MEDS ORDERED: LEVOTHYROXINE SODIUM 75MCG TABLET PO SCH (11:00)
[2022-03-05] MEDS: TRIAMCINOLONE ACETONIDE 0.1% CREAM 15GM TOP SCH ×2 (12:03→21:16)
[2022-03-05 12:13] LABS: HEMOGLOBIN. 9.6 g/dL (12.0-16.0); MEAN CORPUSCULAR HEMOGLOBIN 34.3 pg (28.0-32.0); MEAN CORPUSCULAR VOLUME 104.1 fL (81.0-99.0); MEAN PLATELET VOLUME 10.9 fl (7.4-10.4); RED BLOOD CELL COUNT 2.79 mill/uL (4.2-5.4); RED CELL DISTRIBUTION WIDTH 19.8 % (11.6-14.6)
[2022-03-05 12:26] LABS: CHLORIDE 99 mEq/L (98-107)
[2022-03-05 12:49] LABS: PLATELET 38 x1000/uL (130-400)
[2022-03-05 13:14] LABS: PLATELET ESTIMATE MARKEDLY DECREASED
[2022-03-05] MEDS: CALCIUM 1250MG TABLET (500MG ELEMENTAL CALCIUM) PO SCH ×2 (13:25→17:55)
[2022-03-05] MEDS: DEXT 5%/0.45% NACL 1000ML 1,000 ML IV SCH (17:55)
[2022-03-05] MEDS: LACTULOSE 20G/30ML UDC PO SCH (21:13)
[2022-03-05] MEDS: ATORVASTATIN CALCIUM 20MG TABLET PO SCH (21:14)
[2022-03-06] VITALS (13 sets, daily range): BP systolic 95–161; BP diastolic 51–81
[2022-03-06] MEDS: ALBUTEROL (0.083%) 2.5MG/3ML NEB HHN SCH ×4 (01:47→20:34)
[2022-03-06] MEDS: INSULIN LISPRO 100 UNITS/ML SUBCUT SCH ×4 (06:00→17:48)
[2022-03-06] MEDS: BLOOD SUGAR DIAGNOSTIC STRIP TEST SCH ×3 (06:23→17:41)
[2022-03-06] MEDS: SILDENAFIL CITRATE 20MG TABLET PO SCH ×2 (06:29→14:00)
[2022-03-06] MEDS: METHYLPREDNISOLONE SOD SUCC 40 MG/ML VIAL IV SCH ×3 (06:29→21:11)
[2022-03-06 06:50] LABS: INR 1.5; PROTHROMBIN TIME 15.2 sec (9.6-11.0)
[2022-03-06 07:00] LABS: HEMATOCRIT. 28.7 % (36.0-48.0); HEMOGLOBIN. 9.6 g/dL (12.0-16.0); MEAN CORPUSCULAR HEMOGLOBIN 34.7 pg (28.0-32.0); MEAN CORPUSCULAR VOLUME 103.5 fL (81.0-99.0); MEAN PLATELET VOLUME 10.6 fl (7.4-10.4); RED BLOOD CELL COUNT 2.77 mill/uL (4.2-5.4); RED CELL DISTRIBUTION WIDTH 19.3 % (11.6-14.6)
[2022-03-06] MEDS: LEVOTHYROXINE SODIUM 50MCG TABLET PO SCH (07:52)
[2022-03-06] MEDS: METFORMIN HCL 500MG TABLET PO SCH ×2 (08:00→17:46)
[2022-03-06] MEDS: CALCIUM 1250MG TABLET (500MG ELEMENTAL CALCIUM) PO SCH ×3 (08:00→17:47)
[2022-03-06] MEDS: CHOLECALCIFEROL (D3) 1000 UNIT TABLET PO SCH (08:00)
[2022-03-06] MEDS: LOSARTAN POTASSIUM 50 MG TABLET PO SCH (08:01)
[2022-03-06] MEDS: CARVEDILOL 12.5MG TABLET PO SCH ×2 (08:01→21:11)
[2022-03-06] MEDS: AMIODARONE HCL 200 MG TABLET PO SCH ×2 (08:01→21:11)
[2022-03-06] MEDS: TRIAMCINOLONE ACETONIDE 0.1% CREAM 15GM TOP SCH ×2 (08:02→21:16)
[2022-03-06] MEDS: ALLOPURINOL 100 MG TABLET PO SCH (08:03)
[2022-03-06] MEDS: MEGESTROL ACETATE 400 MG/10 ML UDC PO SCH (08:04)
[2022-03-06] MEDS: FUROSEMIDE 40MG/4ML VIAL IVP SCH (08:04)
[2022-03-06] MEDS: FOLIC ACID 1MG TABLET PO SCH (08:04)
[2022-03-06 08:15] LABS: PLATELET 42 x1000/uL (130-400)
[2022-03-06] MEDS: DEXT 5%/0.45% NACL 1000ML 1,000 ML IV SCH (12:42)
[2022-03-06] MEDS: LACTULOSE 20G/30ML UDC PO SCH (21:10)
[2022-03-06] MEDS: ATORVASTATIN CALCIUM 20MG TABLET PO SCH (21:11)
[2022-03-07] VITALS (12 sets, daily range): BP systolic 93–128; BP diastolic 44–75
[2022-03-07] MEDS: INSULIN LISPRO 100 UNITS/ML SUBCUT SCH ×5 (00:21→23:51)
[2022-03-07] MEDS: SILDENAFIL CITRATE 20MG TABLET PO SCH ×4 (00:27→21:41)
[2022-03-07] MEDS: ALBUTEROL (0.083%) 2.5MG/3ML NEB HHN SCH ×4 (01:47→20:16)
[2022-03-07] MEDS: METHYLPREDNISOLONE SOD SUCC 40 MG/ML VIAL IV SCH ×3 (05:42→21:42)
[2022-03-07] MEDS: BLOOD SUGAR DIAGNOSTIC STRIP TEST SCH ×5 (05:43→23:51)
[2022-03-07 06:34] LABS: PLATELET ESTIMATE MARKEDLY DECREASED
[2022-03-07] MEDS: TRAMADOL 50MG TABLET PO PRN (06:54)
[2022-03-07 07:23] LABS: HEMATOCRIT. 28.5 % (36.0-48.0); HEMOGLOBIN. 9.4 g/dL (12.0-16.0); MEAN CORPUSCULAR HEMOGLOBIN 34.4 pg (28.0-32.0); MEAN CORPUSCULAR VOLUME 104.3 fL (81.0-99.0); MEAN PLATELET VOLUME 10.2 fl (7.4-10.4); RED BLOOD CELL COUNT 2.74 mill/uL (4.2-5.4); RED CELL DISTRIBUTION WIDTH 19.3 % (11.6-14.6)
[2022-03-07 07:30] LABS: INR 1.4; PROTHROMBIN TIME 14.4 sec (9.6-11.0)
[2022-03-07 07:32] LABS: PLATELET 49 x1000/uL (130-400)
[2022-03-07 07:34] LABS: CHLORIDE 99 mEq/L (98-107)
[2022-03-07 07:48] LABS: T4 FREE 0.79 ng/dL (0.76-1.46)
[2022-03-07] MEDS: CALCIUM 1250MG TABLET (500MG ELEMENTAL CALCIUM) PO SCH ×3 (08:48→16:09)
[2022-03-07] MEDS: METFORMIN HCL 500MG TABLET PO SCH ×2 (08:48→18:19)
[2022-03-07] MEDS: LOSARTAN POTASSIUM 50 MG TABLET PO SCH (08:48)
[2022-03-07] MEDS: CHOLECALCIFEROL (D3) 1000 UNIT TABLET PO SCH (08:49)
[2022-03-07] MEDS: FUROSEMIDE 40MG/4ML VIAL IVP SCH (08:49)
[2022-03-07] MEDS: ALLOPURINOL 100 MG TABLET PO SCH (08:49)
[2022-03-07] MEDS: FOLIC ACID 1MG TABLET PO SCH (08:49)
[2022-03-07] MEDS: CARVEDILOL 12.5MG TABLET PO SCH ×2 (08:49→21:42)
[2022-03-07] MEDS: MEGESTROL ACETATE 400 MG/10 ML UDC PO SCH (08:49)
[2022-03-07] MEDS: AMIODARONE HCL 200 MG TABLET PO SCH ×2 (08:49→21:41)
[2022-03-07] MEDS: LEVOTHYROXINE SODIUM 50MCG TABLET PO SCH (08:50)
[2022-03-07] MEDS: DEXT 5%/0.45% NACL 1000ML 1,000 ML IV SCH (08:50)
[2022-03-07] MEDS: TRIAMCINOLONE ACETONIDE 0.1% CREAM 15GM TOP SCH ×2 (08:51→21:43)
[2022-03-07 13:06] LABS: ALDOLASE 6.4 U/L (3.3-10.3)
[2022-03-07] MEDS: ATORVASTATIN CALCIUM 20MG TABLET PO SCH (21:41)
[2022-03-07] MEDS: LACTULOSE 20G/30ML UDC PO SCH (21:42)
[2022-03-07 22:26] LABS: PLATELET ESTIMATE MARKEDLY DECREASED
[2022-03-08] VITALS (12 sets, daily range): BP systolic 94–137; BP diastolic 50–85
[2022-03-08] MEDS: ALBUTEROL (0.083%) 2.5MG/3ML NEB HHN SCH ×4 (02:07→21:22)
[2022-03-08] MEDS: DEXT 5%/0.45% NACL 1000ML 1,000 ML IV SCH (04:25)
[2022-03-08] MEDS: SILDENAFIL CITRATE 20MG TABLET PO SCH ×3 (05:15→21:04)
[2022-03-08] MEDS: METHYLPREDNISOLONE SOD SUCC 40 MG/ML VIAL IV SCH ×3 (05:15→21:01)
[2022-03-08] MEDS: BLOOD SUGAR DIAGNOSTIC STRIP TEST SCH ×3 (05:41→18:08)
[2022-03-08] MEDS: INSULIN LISPRO 100 UNITS/ML SUBCUT SCH ×3 (05:41→18:00)
[2022-03-08 06:26] LABS: INR 1.3; PROTHROMBIN TIME 14.1 sec (9.6-11.0)
[2022-03-08 06:40] LABS: HEMATOCRIT. 25.3 % (36.0-48.0); HEMOGLOBIN. 8.2 g/dL (12.0-16.0); MEAN CORPUSCULAR HEMOGLOBIN 34.7 pg (28.0-32.0); MEAN CORPUSCULAR VOLUME 106.6 fL (81.0-99.0); MEAN PLATELET VOLUME 10.4 fl (7.4-10.4); RED BLOOD CELL COUNT 2.37 mill/uL (4.2-5.4); RED CELL DISTRIBUTION WIDTH 19.2 % (11.6-14.6)
[2022-03-08 07:12] LABS: ANA IFA Negative (.)
[2022-03-08] MEDS: MEGESTROL ACETATE 400 MG/10 ML UDC PO SCH (08:49)
[2022-03-08] MEDS: FUROSEMIDE 40MG/4ML VIAL IVP SCH (08:49)
[2022-03-08] MEDS: CHOLECALCIFEROL (D3) 1000 UNIT TABLET PO SCH (08:49)
[2022-03-08] MEDS: LEVOTHYROXINE SODIUM 50MCG TABLET PO SCH (08:50)
[2022-03-08] MEDS: CALCIUM 1250MG TABLET (500MG ELEMENTAL CALCIUM) PO SCH ×3 (08:50→18:20)
[2022-03-08] MEDS: METFORMIN HCL 500MG TABLET PO SCH ×2 (08:50→18:18)
[2022-03-08] MEDS: AMIODARONE HCL 200 MG TABLET PO SCH ×2 (08:50→20:27)
[2022-03-08] MEDS: ALLOPURINOL 100 MG TABLET PO SCH (08:51)
[2022-03-08] MEDS: CARVEDILOL 12.5MG TABLET PO SCH ×2 (08:51→20:27)
[2022-03-08] MEDS: LOSARTAN POTASSIUM 50 MG TABLET PO SCH (09:00)
[2022-03-08] MEDS: SIMETHICONE 40 MG/0.6 ML 15ML PO SCH ×4 (09:02→21:00)
[2022-03-08] MEDS: TRIAMCINOLONE ACETONIDE 0.1% CREAM 15GM TOP SCH ×2 (09:11→21:00)
[2022-03-08] MEDS: FOLIC ACID 1MG TABLET PO SCH (09:15)
[2022-03-08 12:07] LABS: CHLORIDE 99 mEq/L (98-107)
[2022-03-08 17:51] LABS: PLATELET 47 x1000/uL (130-400); PLATELET ESTIMATE MARKEDLY DECREASED
[2022-03-08] MEDS: LACTULOSE 20G/30ML UDC PO SCH (20:27)
[2022-03-08] MEDS: ATORVASTATIN CALCIUM 20MG TABLET PO SCH (20:27)
[2022-03-08] MEDS ORDERED: DEXT 5%/0.45% NACL 500ML 500 ML IV ONE (22:45)
[2022-03-09] VITALS (12 sets, daily range): BP systolic 100–150; BP diastolic 39–72
[2022-03-09] MEDS: INSULIN LISPRO 100 UNITS/ML SUBCUT SCH ×4 (00:21→17:41)
[2022-03-09] MEDS: DEXT 5%/0.45% NACL 1000ML 1,000 ML IV SCH (00:23)
[2022-03-09] MEDS: ACETAMINOPHEN 325MG TABLET PO PRN (04:33)
[2022-03-09] MEDS: METHYLPREDNISOLONE SOD SUCC 40 MG/ML VIAL IV SCH ×3 (05:26→21:10)
[2022-03-09] MEDS: SILDENAFIL CITRATE 20MG TABLET PO SCH ×3 (05:26→21:10)
[2022-03-09] MEDS: ONDANSETRON HCL 4MG/2ML INJ IV PRN (05:29)
[2022-03-09] MEDS: BLOOD SUGAR DIAGNOSTIC STRIP TEST SCH ×4 (06:00→17:41)
[2022-03-09 06:53] LABS: CHLORIDE 100 mEq/L (98-107)
[2022-03-09] MEDS: ALBUTEROL (0.083%) 2.5MG/3ML NEB HHN SCH ×3 (07:30→20:44)
[2022-03-09] MEDS: CHOLECALCIFEROL (D3) 1000 UNIT TABLET PO SCH (08:20)
[2022-03-09] MEDS: FUROSEMIDE 40MG/4ML VIAL IVP SCH (08:20)
[2022-03-09] MEDS: POTASSIUM CHLORIDE 20MEQ TABLET SR PO SCH (08:20)
[2022-03-09] MEDS: MEGESTROL ACETATE 400 MG/10 ML UDC PO SCH (08:20)
[2022-03-09] MEDS: LEVOTHYROXINE SODIUM 50MCG TABLET PO SCH (08:21)
[2022-03-09] MEDS: AMIODARONE HCL 200 MG TABLET PO SCH ×2 (08:21→21:11)
[2022-03-09] MEDS: CALCIUM 1250MG TABLET (500MG ELEMENTAL CALCIUM) PO SCH ×3 (08:21→17:00)
[2022-03-09] MEDS: METFORMIN HCL 500MG TABLET PO SCH ×2 (08:21→17:48)
[2022-03-09] MEDS: ALLOPURINOL 100 MG TABLET PO SCH (08:21)
[2022-03-09] MEDS: FOLIC ACID 1MG TABLET PO SCH (08:21)
[2022-03-09] MEDS: CARVEDILOL 12.5MG TABLET PO SCH ×2 (08:22→21:11)
[2022-03-09] MEDS: LOSARTAN POTASSIUM 50 MG TABLET PO SCH (08:22)
[2022-03-09] MEDS: SIMETHICONE 40 MG/0.6 ML 15ML PO SCH (08:30)
[2022-03-09] MEDS: TRIAMCINOLONE ACETONIDE 0.1% CREAM 15GM TOP SCH ×2 (08:54→21:11)
[2022-03-09 10:09] LABS: INR 1.3; PROTHROMBIN TIME 13.5 sec (9.6-11.0)
[2022-03-09] MEDS: SIMETHICONE 80MG TABLET CHEW PO SCH ×3 (13:13→21:10)
[2022-03-09] MEDS: LACTULOSE 20G/30ML UDC PO SCH (21:10)
[2022-03-09] MEDS: ATORVASTATIN CALCIUM 20MG TABLET PO SCH (21:11)
[2022-03-10] VITALS (12 sets, daily range): BP systolic 99–148; BP diastolic 46–68
[2022-03-10] MEDS: BLOOD SUGAR DIAGNOSTIC STRIP TEST SCH ×4 (00:10→17:29)
[2022-03-10] MEDS: ALBUTEROL (0.083%) 2.5MG/3ML NEB HHN SCH ×4 (02:19→21:12)
[2022-03-10] MEDS: METHYLPREDNISOLONE SOD SUCC 40 MG/ML VIAL IV SCH ×3 (05:37→21:20)
[2022-03-10] MEDS: SILDENAFIL CITRATE 20MG TABLET PO SCH ×3 (05:38→21:21)
[2022-03-10] MEDS: INSULIN LISPRO 100 UNITS/ML SUBCUT SCH ×4 (05:38→17:30)
[2022-03-10 06:46] LABS: HEMATOCRIT. 27.5 % (36.0-48.0); HEMOGLOBIN. 9.1 g/dL (12.0-16.0); MEAN CORPUSCULAR HEMOGLOBIN 34.6 pg (28.0-32.0); MEAN CORPUSCULAR VOLUME 104.6 fL (81.0-99.0); PLATELET 60 x1000/uL (130-400); RED BLOOD CELL COUNT 2.63 mill/uL (4.2-5.4); RED CELL DISTRIBUTION WIDTH 19.4 % (11.6-14.6)
[2022-03-10 07:02] LABS: CHLORIDE 101 mEq/L (98-107); INR 1.3; PROTHROMBIN TIME 13.6 sec (9.6-11.0)
[2022-03-10] MEDS: CHOLECALCIFEROL (D3) 1000 UNIT TABLET PO SCH (08:16)
[2022-03-10] MEDS: FOLIC ACID 1MG TABLET PO SCH (08:16)
[2022-03-10] MEDS: METFORMIN HCL 500MG TABLET PO SCH ×2 (08:16→17:39)
[2022-03-10] MEDS: LEVOTHYROXINE SODIUM 50MCG TABLET PO SCH (08:16)
[2022-03-10] MEDS: SIMETHICONE 80MG TABLET CHEW PO SCH ×4 (08:16→21:21)
[2022-03-10] MEDS: POTASSIUM CHLORIDE 20MEQ TABLET SR PO SCH (08:16)
[2022-03-10] MEDS: AMIODARONE HCL 200 MG TABLET PO SCH ×2 (08:16→21:21)
[2022-03-10] MEDS: ALLOPURINOL 100 MG TABLET PO SCH (08:16)
[2022-03-10] MEDS: LOSARTAN POTASSIUM 50 MG TABLET PO SCH (08:21)
[2022-03-10] MEDS: CARVEDILOL 12.5MG TABLET PO SCH ×2 (08:21→21:21)
[2022-03-10] MEDS: FUROSEMIDE 40MG/4ML VIAL IVP SCH (08:22)
[2022-03-10] MEDS: MEGESTROL ACETATE 400 MG/10 ML UDC PO SCH (08:23)
[2022-03-10] MEDS: CALCIUM 1250MG TABLET (500MG ELEMENTAL CALCIUM) PO SCH ×3 (08:36→17:39)
[2022-03-10] MEDS: TRIAMCINOLONE ACETONIDE 0.1% CREAM 15GM TOP SCH ×2 (08:38→21:21)
[2022-03-10 14:11] LABS: PLATELET ESTIMATE DECREASED
[2022-03-10] MEDS: ATORVASTATIN CALCIUM 20MG TABLET PO SCH (21:20)
[2022-03-10] MEDS: LACTULOSE 20G/30ML UDC PO SCH (21:20)
[2022-03-11] VITALS (12 sets, daily range): BP systolic 80–114; BP diastolic 39–62
[2022-03-11] MEDS: ALBUTEROL (0.083%) 2.5MG/3ML NEB HHN SCH ×4 (01:01→20:24)
[2022-03-11] MEDS: INSULIN LISPRO 100 UNITS/ML SUBCUT SCH ×4 (05:52→17:52)
[2022-03-11] MEDS: SILDENAFIL CITRATE 20MG TABLET PO SCH ×3 (05:52→21:35)
[2022-03-11] MEDS: BLOOD SUGAR DIAGNOSTIC STRIP TEST SCH ×4 (05:53→17:52)
[2022-03-11] MEDS: METHYLPREDNISOLONE SOD SUCC 40 MG/ML VIAL IV SCH ×3 (05:53→21:36)
[2022-03-11 07:05] LABS: INR 1.3; PROTHROMBIN TIME 13.7 sec (9.6-11.0)
[2022-03-11 07:08] LABS: HEMATOCRIT. 27.2 % (36.0-48.0); MEAN CORPUSCULAR HEMOGLOBIN 34.5 pg (28.0-32.0); MEAN CORPUSCULAR VOLUME 104.1 fL (81.0-99.0); MEAN PLATELET VOLUME 9.5 fl (7.4-10.4); PLATELET 65 x1000/uL (130-400); RED BLOOD CELL COUNT 2.61 mill/uL (4.2-5.4); RED CELL DISTRIBUTION WIDTH 19.6 % (11.6-14.6)
[2022-03-11] MEDS: ALLOPURINOL 100 MG TABLET PO SCH (08:17)
[2022-03-11] MEDS: CARVEDILOL 12.5MG TABLET PO SCH ×2 (08:17→21:00)
[2022-03-11] MEDS: POTASSIUM CHLORIDE 20MEQ TABLET SR PO SCH (08:17)
[2022-03-11] MEDS: LEVOTHYROXINE SODIUM 50MCG TABLET PO SCH (08:17)
[2022-03-11] MEDS: FOLIC ACID 1MG TABLET PO SCH (08:18)
[2022-03-11] MEDS: METFORMIN HCL 500MG TABLET PO SCH ×2 (08:18→18:21)
[2022-03-11] MEDS: LOSARTAN POTASSIUM 50 MG TABLET PO SCH (08:18)
[2022-03-11] MEDS: AMIODARONE HCL 200 MG TABLET PO SCH ×2 (08:18→21:36)
[2022-03-11] MEDS: CHOLECALCIFEROL (D3) 1000 UNIT TABLET PO SCH (08:18)
[2022-03-11] MEDS: FUROSEMIDE 40MG/4ML VIAL IVP SCH (08:19)
[2022-03-11] MEDS: MEGESTROL ACETATE 400 MG/10 ML UDC PO SCH (08:20)
[2022-03-11] MEDS: SIMETHICONE 80MG TABLET CHEW PO SCH ×4 (08:21→21:35)
[2022-03-11] MEDS: TRIAMCINOLONE ACETONIDE 0.1% CREAM 15GM TOP SCH ×2 (08:22→21:36)
[2022-03-11] MEDS: CALCIUM 1250MG TABLET (500MG ELEMENTAL CALCIUM) PO SCH ×3 (08:25→17:56)
[2022-03-11] MEDS ORDERED: WARFARIN SODIUM 2MG TABLET PO SCH (18:00)
[2022-03-11] MEDS: ATORVASTATIN CALCIUM 20MG TABLET PO SCH (21:35)
[2022-03-11] MEDS: LACTULOSE 20G/30ML UDC PO SCH (21:35)
[2022-03-12] VITALS: BP 112/56
[2022-03-12] MEDS: ALBUTEROL (0.083%) 2.5MG/3ML NEB HHN SCH (01:32)
[2022-03-12 02:00] VITALS: BP 98/51
[2022-03-12 04:01] VITALS: BP 142/62
[2022-03-12] MEDS: BLOOD SUGAR DIAGNOSTIC STRIP TEST SCH ×2 (05:32)
[2022-03-12] MEDS: METHYLPREDNISOLONE SOD SUCC 40 MG/ML VIAL IV SCH (05:32)
[2022-03-12] MEDS: SILDENAFIL CITRATE 20MG TABLET PO SCH (05:32)
[2022-03-12] MEDS: INSULIN LISPRO 100 UNITS/ML SUBCUT SCH ×2 (05:33)
[2022-03-12 06:00] VITALS: BP 126/63
[2022-03-12 07:21] VITALS: BP 107/67
[2022-03-12 07:39] LABS: HEMATOCRIT. 26.6 % (36.0-48.0); HEMOGLOBIN. 8.8 g/dL (12.0-16.0); MEAN CORPUSCULAR HEMOGLOBIN 34.5 pg (28.0-32.0); MEAN CORPUSCULAR VOLUME 103.9 fL (81.0-99.0); MEAN PLATELET VOLUME 9.4 fl (7.4-10.4); PLATELET 68 x1000/uL (130-400); RED BLOOD CELL COUNT 2.56 mill/uL (4.2-5.4); RED CELL DISTRIBUTION WIDTH 19.3 % (11.6-14.6)
[2022-03-12 07:43] LABS: INR 1.3; PROTHROMBIN TIME 13.4 sec (9.6-11.0)
[2022-03-12 10:38] LABS: PLATELET ESTIMATE DECREASED
[2022-03-12 15:02] LABS: PLATELET ESTIMATE DECREASED
== END 2022-03-12 08:19 | DRG 689 ==
LOC: ER 01:59 → 7WST 08:04 → EDBEDREQ 08:08 → 5EST 02-24 12:23
PROVIDERS: ADMIT Internal Medicine Rheumatology; ATTEND Internal Medicine Rheumatology
PROC: 02H633Z Insertion of Infusion Device into Right Atrium, Percutaneous Approach (ICD-10-PCS; principal; 2022-02-25)
PROC: B548ZZA Ultrasonography of Superior Vena Cava, Guidance (ICD-10-PCS; 2022-02-25)
PROC: 30233N1 Transfusion of Nonautologous Red Blood Cells into Peripheral Vein, Percutaneous Approach (ICD-10-PCS; 2022-03-04)
DX: N39.0 Urinary tract infection, site not specified (principal); I50.43 Acute on chronic combined systolic (congestive) and diastolic (congestive) heart failure; J96.21 Acute and chronic respiratory failure with hypoxia; M33.20 Polymyositis, organ involvement unspecified; D68.61 Antiphospholipid syndrome; Z16.12 Extended spectrum beta lactamase (ESBL) resistance; E44.1 Mild protein-calorie malnutrition; I47.1 Supraventricular tachycardia; D68.9 Coagulation defect, unspecified; I42.9 Cardiomyopathy, unspecified; E87.1 Hypo-osmolality and hyponatremia; Z16.21 Resistance to vancomycin; M31.6 Other giant cell arteritis; I11.0 Hypertensive heart disease with heart failure; E78.00 Pure hypercholesterolemia, unspecified; E78.5 Hyperlipidemia, unspecified; K59.00 Constipation, unspecified; K80.20 Calculus of gallbladder without cholecystitis without obstruction; D69.6 Thrombocytopenia, unspecified; D72.810 Lymphocytopenia; E11.9 Type 2 diabetes mellitus without complications; F03.90 Unspecified dementia, unspecified severity, without behavioral disturbance, psychotic disturbance, mood disturbance, and anxiety; D53.9 Nutritional anemia, unspecified; E03.9 Hypothyroidism, unspecified; I27.20 Pulmonary hypertension, unspecified; F32.9 Major depressive disorder, single episode, unspecified; K64.9 Unspecified hemorrhoids; E87.5 Hyperkalemia; I08.0 Rheumatic disorders of both mitral and aortic valves; I48.91 Unspecified atrial fibrillation; D72.819 Decreased white blood cell count, unspecified; R74.01 Elevation of levels of liver transaminase levels; Z20.822 Contact with and (suspected) exposure to COVID-19; M06.9 Rheumatoid arthritis, unspecified; M19.90 Unspecified osteoarthritis, unspecified site; M51.36 Other intervertebral disc degeneration, lumbar region; Z82.49 Family history of ischemic heart disease and other diseases of the circulatory system; Z82.5 Family history of asthma and other chronic lower respiratory diseases; Z90.710 Acquired absence of both cervix and uterus; Z83.3 Family history of diabetes mellitus; Z86.711 Personal history of pulmonary embolism; Z86.718 Personal history of other venous thrombosis and embolism; Z79.01 Long term (current) use of anticoagulants; Z95.828 Presence of other vascular implants and grafts; Z79.899 Other long term (current) drug therapy; Z68.21 Body mass index [BMI] 21.0-21.9, adult; R79.89 Other specified abnormal findings of blood chemistry; B95.2 Enterococcus as the cause of diseases classified elsewhere; B96.20 Unspecified Escherichia coli [E. coli] as the cause of diseases classified elsewhere
CPT/HCPCS: 36415; 36573; 36600; 71045; 74018; 74176; 80048; 80053; 80202; 81003; 82085; 82140; 82164; 82375; 82550; 82607; 82805; 82962; 83036; 83520; 83880; 84134; 84439; 84484; 84550; 85025; 85027; 85379; 85651; 86160; 86235; 86256; 86850; 86880; 86900; 86920; 87077; 87186; 87426; 93005; 93970; 93971; 94640; 94664; 99285; C1725; J0282; J0290; J0696; J0713; J1815; J1885; J1940; J1956; J2060; J2270; J2405; J2920; J3370; J3420; J7042; J7060; J8610; P9016